=== PATIENT | male | born 1980 | race Caucasian/White ===

== ENCOUNTER 2016-12-11 19:30 | Emergency (ER) | payer OTHER ==
[~2016-12-11] VITALS: Ht 180.3 cm; Wt 100.0 kg
[~2016-12-11 19:30] MED LIST: ARIP30TA5 PO; BENZ1TAB70 PO; LURA40 PO
[2016-12-11 22:23] LABS: BASOPHILS # (AUTO) 0.06 K/uL (0.00-0.20); BASOPHILS % (AUTO) 0.6 % (0.0-2.0); EOSINOPHILS # (AUTO) 0.18 K/uL (0.00-0.70); EOSINOPHILS % (AUTO) 1.76 % (1.0-6.0); HEMATOCRIT 47.3 % (41-53); HEMOGLOBIN 16.1 g/dL (13.5-17.5); LYMPHOCYTES # (AUTO) 3.4 K/uL (1.0-4.8); LYMPHOCYTES % (AUTO) 33.2 % (22.0-44.0); MEAN CORPUSCULAR VOLUME 79 fL (80-100); MONOCYTES # (AUTO) 0.6 K/uL (0.1-1.0); MONOCYTES % (AUTO) 5.9 % (2.0-9.0); NEUTROPHILS % (AUTO) 58.6 % (40.0-70.0); PLATELET COUNT (AUTO) 237 K/uL (150-450); RED BLOOD CELL COUNT(AUTO) 5.96 MIL/uL (4.50-5.90); WHITE BLOOD COUNT (AUTO) 10.2 K/uL (4.5-11.0)
[2016-12-11 22:41] LABS: ANION GAP 13 mmol/L (8-16); CALCIUM, TOTAL 8.9 mg/dL (8.8-10.5); CARBON DIOXIDE 25 mmol/L (22-29); CHLORIDE 102 mmol/L (98-107); CREATININE 1.44 mg/dL (0.60-1.30); GLOMERULAR FILTR. RATE CALC 55 mL/min (>60); POTASSIUM 4.1 mmol/L (3.5-5.1); SODIUM SERUM 140 mmol/L (136-145); UREA NITROGEN, BLOOD 13 mg/dL (7-18)
[2016-12-11 22:46] LABS: ALANINE AMINOTRANSFERASE 24 U/L (12-78); ALBUMIN 4.1 g/dL (3.4-5.0); ASPARTATE AMINOTRANSFERASE 15 U/L (15-37); BILIRUBIN,TOTAL 0.4 mg/dL (0.1-1.0); TOTAL PROTEIN, SERUM 8.1 g/dL (6.4-8.2)
[2016-12-12 02:25] VITALS: BP 146/95
== END 2016-12-12 03:04 | disposition home or self-care (01) ==
LOC: EMS 19:31
DX: F25.9 Schizoaffective disorder, unspecified (principal); K21.9 Gastro-esophageal reflux disease without esophagitis; F17.210 Nicotine dependence, cigarettes, uncomplicated
CPT/HCPCS: 36415; 80053; 80307; 85025; 99284; G0480

== ENCOUNTER 2017-06-23 11:56 | Emergency (ER) | payer OTHER ==
[~2017-06-23] VITALS: Ht 180.3 cm; Wt 130.9 kg
[~2017-06-23 11:56] MED LIST changes: +ARIP30TA PO; -ARIP30TA5 PO
[2017-06-23 14:50] VITALS: BP 139/82
== END 2017-06-23 14:58 | disposition home or self-care (01) ==
LOC: EMS 11:58
DX: M25.561 Pain in right knee (principal); F20.9 Schizophrenia, unspecified; R03.0 Elevated blood-pressure reading, without diagnosis of hypertension; K21.9 Gastro-esophageal reflux disease without esophagitis; F17.210 Nicotine dependence, cigarettes, uncomplicated
CPT/HCPCS: 29505; 99283

== ENCOUNTER 2018-04-20 12:41 | Emergency (ER) | payer OTHER ==
[~2018-04-20] VITALS: Ht 180.3 cm; Wt 95.5 kg
[2018-04-20] MEDS ORDERED: BUSP5TAB20 PO (12:52)
[2018-04-20 14:32] LABS: APPEARANCE,URINE CLEAR (CLEAR); BILIRUBIN,URINE NEGATIVE (NEGATIVE); GLUCOSE, URINE (UA) NEGATIVE (NEGATIVE); KETONES,URINE NEGATIVE (NEGATIVE); LEUKOCYTE ESTERASE ,URINE NEGATIVE (NEGATIVE); NITRATE,URINE NEGATIVE (NEGATIVE); OCCULT BLOOD,URINE NEGATIVE (NEGATIVE); PROTEIN,URINE NEGATIVE (NEGATIVE)
[2018-04-20 14:39] LABS: RBC,URINE 0-2 /HPF (0-2)
[2018-04-20 14:41] LABS: BACTERIA,URINE None Seen /HPF (None Seen)
[2018-04-20 14:43] LABS: SQUAMOUS EPITHELIAL CELL,UR Rare /LPF (None Seen)
[2018-04-20 16:33] VITALS: BP 143/97
[2018-04-20] MEDS ORDERED: CIPROFLOXACIN HCL 250 MG TABLET PO ONE (17:00)
[2018-04-20] MEDS ORDERED: DOXYCYCLINE HYCLATE 100 MG CAPSULE PO ONE (17:30)
== END 2018-04-20 17:41 | disposition home or self-care (01) ==
LOC: EMS 12:42
DX: N45.3 Epididymo-orchitis (principal); N50.89 Other specified disorders of the male genital organs; K21.9 Gastro-esophageal reflux disease without esophagitis; F17.210 Nicotine dependence, cigarettes, uncomplicated
CPT/HCPCS: 76870; 87086; 99284; 99285; 99406

== ENCOUNTER 2018-08-13 12:50 | Inpatient (IN) | payer MEDICAID, OTHER ==
[~2018-08-13] VITALS: Ht 180.3 cm; Wt 127.5 kg
[~2018-08-13 12:50] MED LIST changes: +BUSP5TAB20 PO
[2018-08-13 14:55] LABS: BASOPHILS % (AUTO) 1.2 % (0.0-2.0); EOSINOPHILS % (AUTO) 2.9 % (1.0-6.0); HEMOGLOBIN 15.9 g/dL (13.5-17.5); LYMPHOCYTES # (AUTO) 2.5 K/uL (1.0-4.8); LYMPHOCYTES % (AUTO) 30.4 % (22.0-44.0); MEAN CORPUSCULAR HEMOGLOBIN 26.2 pg (26.0-34.0); MEAN CORPUSCULAR HGB CONC 33.8 G/dL (31.0-37.0); MEAN CORPUSCULAR VOLUME 78 fL (80-100); MONOCYTES # (AUTO) 0.6 K/uL (0.1-1.0); MONOCYTES % (AUTO) 7.4 % (2.0-9.0); NEUTROPHILS # (AUTO) 4.7 K/uL (1.8-7.7); NEUTROPHILS % (AUTO) 58.1 % (40.0-70.0); PLATELET COUNT (AUTO) 228 K/uL (150-450); RED BLOOD CELL COUNT(AUTO) 6.05 MIL/uL (4.50-5.90); RED CELL DISTRIBUTION WIDTH 15.1 % (11.5-14.5)
[2018-08-13 15:13] LABS: ANION GAP 11 mmol/L (8-16); CALCIUM, TOTAL 8.9 mg/dL (8.8-10.5); CARBON DIOXIDE 25 mmol/L (22-29); CHLORIDE 103 mmol/L (98-107); CREATININE 1.13 mg/dL (0.60-1.30); GLOMERULAR FILTR. RATE CALC > 60 mL/min (>60); GLUCOSE,RANDOM 105 mg/dL (70-110); POTASSIUM 3.9 mmol/L (3.5-5.1); SODIUM SERUM 139 mmol/L (136-145); UREA NITROGEN, BLOOD 9 mg/dL (7-18)
[2018-08-13 15:19] LABS: ALANINE AMINOTRANSFERASE 31 U/L (12-78); ALBUMIN 3.9 g/dL (3.4-5.0); ALKALINE PHOSPHATASE 99 U/L (46-116); ASPARTATE AMINOTRANSFERASE 12 U/L (15-37); BILIRUBIN,TOTAL 0.4 mg/dL (0.1-1.0); TOTAL PROTEIN, SERUM 7.7 g/dL (6.4-8.2)
[2018-08-13] MEDS ORDERED: HALOPERIDOL 5 MG TABLET PO PRN (16:30)
[2018-08-13] MEDS ORDERED: ZOLPIDEM TARTRATE 10 MG TABLET PO PRN (16:30)
[2018-08-13] MEDS ORDERED: ARIPiprazole LAUROXIL ER SUSPENSION 882 MG/3.2 ML SYRINGE IM ONE (16:30)
[2018-08-13] MEDS ORDERED: LORazepam 2 MG TABLET PO PRN (16:30)
[2018-08-13] MEDS: BusPIRone HCL 15 MG TABLET PO SCH (19:09)
[2018-08-13] MEDS: DiphenhydrAMINE HCL 25 MG CAPSULE PO SCH (20:18)
[2018-08-13] MEDS: ChlorproMAZINE HCL 100 MG TABLET PO SCH (20:19)
[2018-08-13 20:42] VITALS: BP 157/94
[2018-08-13] MEDS ORDERED: ALBUTEROL SULFATE HFA 90 MCG/PUFF 8 GM INHALER IH PRN (20:45)
[2018-08-13] MEDS ORDERED: ACETAMINOPHEN 325 MG TABLET PO PRN (20:45)
[2018-08-13] MEDS ORDERED: MAGNESIUM HYDROXIDE SUSPENSION 30 ML UDCUP PO PRN (20:45)
[2018-08-13] MEDS ORDERED: GuaiFENesin/D-METHORPHAN [SUGAR-FREE] 200-20MG/10 ML SYRUP UDCUP PO PRN (20:45)
[2018-08-13] MEDS ORDERED: CloNIDine HCL 0.1 MG TABLET PO PRN (20:45)
[2018-08-13] MEDS ORDERED: DOCUSATE SODIUM 100 MG CAPSULE PO PRN (20:45)
[2018-08-13] MEDS ORDERED: IBUPROFEN 400 MG TABLET PO PRN (20:45)
[2018-08-13] MEDS ORDERED: MAG HYDROX/AL HYDROX/SIMETH ES 30 ML SUSPENSION UDCUP PO PRN (20:45)
[2018-08-13] MEDS ORDERED: ONDANSETRON HCL 4 MG TABLET PO PRN (20:45)
[2018-08-13] MEDS ORDERED: LOPERAMIDE HCL 2 MG CAPSULE PO PRN (20:45)
[2018-08-13] MEDS ORDERED: PETROLATUM,WHITE 71 GM JELLY TP PRN (20:45)
[2018-08-14 06:43] LABS: BASOPHILS % (AUTO) 1.5 % (0.0-2.0); EOSINOPHILS % (AUTO) 5.3 % (1.0-6.0); HEMATOCRIT 46.3 % (41-53); HEMOGLOBIN 15.7 g/dL (13.5-17.5); LYMPHOCYTES # (AUTO) 2.4 K/uL (1.0-4.8); LYMPHOCYTES % (AUTO) 36.4 % (22.0-44.0); MEAN CORPUSCULAR HEMOGLOBIN 26.2 pg (26.0-34.0); MEAN CORPUSCULAR VOLUME 77 fL (80-100); MONOCYTES # (AUTO) 0.5 K/uL (0.1-1.0); MONOCYTES % (AUTO) 7.9 % (2.0-9.0); NEUTROPHILS # (AUTO) 3.2 K/uL (1.8-7.7); NEUTROPHILS % (AUTO) 48.9 % (40.0-70.0); PLATELET COUNT (AUTO) 213 K/uL (150-450); RED BLOOD CELL COUNT(AUTO) 6.01 MIL/uL (4.50-5.90); RED CELL DISTRIBUTION WIDTH 15.1 % (11.5-14.5)
[2018-08-14 07:13] LABS: ALANINE AMINOTRANSFERASE 26 U/L (12-78); ALKALINE PHOSPHATASE 100 U/L (46-116); ANION GAP 7 mmol/L (8-16); ASPARTATE AMINOTRANSFERASE 14 U/L (15-37); BILIRUBIN,TOTAL 0.8 mg/dL (0.1-1.0); CALCIUM, TOTAL 8.4 mg/dL (8.8-10.5); CARBON DIOXIDE 29 mmol/L (22-29); CHLORIDE 105 mmol/L (98-107); CHOL/HDL RATIO 6.1 (4.2-7.3); CHOLESTEROL 172 mg/dL (131-200); CREATININE 1.28 mg/dL (0.60-1.30); GLOMERULAR FILTR. RATE CALC > 60 mL/min (>60); GLUCOSE,RANDOM 97 mg/dL (70-110); HDL CHOLESTEROL 28 mg/dL (40-60); LDL CHOL (CALC.) 111 mg/dL (0-130); POTASSIUM 4.2 mmol/L (3.5-5.1); SODIUM SERUM 141 mmol/L (136-145); TOTAL PROTEIN, SERUM 7.1 g/dL (6.4-8.2); TRIGLYCERIDES 164 mg/dL (15-150); UREA NITROGEN, BLOOD 10 mg/dL (7-18)
[2018-08-14 08:24] LABS: HEMOGLOBIN A1C 5.7 % (4.5-6.2)
[2018-08-14 08:25] VITALS: BP 159/96
[2018-08-14] MEDS: NICOTINE 14 MG/24 HOUR PATCH TD SCH (08:27)
[2018-08-14] MEDS: BusPIRone HCL 15 MG TABLET PO SCH ×3 (08:27→16:31)
[2018-08-14 15:02] LABS: APPEARANCE,URINE CLEAR (CLEAR); BILIRUBIN,URINE NEGATIVE (NEGATIVE); GLUCOSE, URINE (UA) NEGATIVE (NEGATIVE); KETONES,URINE NEGATIVE (NEGATIVE); LEUKOCYTE ESTERASE ,URINE NEGATIVE (NEGATIVE); NITRATE,URINE NEGATIVE (NEGATIVE); OCCULT BLOOD,URINE NEGATIVE (NEGATIVE); PROTEIN,URINE NEGATIVE (NEGATIVE)
[2018-08-14] MEDS: DiphenhydrAMINE HCL 25 MG CAPSULE PO SCH (20:09)
[2018-08-14] MEDS: ChlorproMAZINE HCL 100 MG TABLET PO SCH (20:09)
[2018-08-14 20:52] VITALS: BP 115/70
[2018-08-14 21:53] VITALS: BP 136/81
[2018-08-14] MEDS: AmLODIPine BESYLATE 5 MG TABLET PO SCH (21:53)
[2018-08-15] MEDS: AmLODIPine BESYLATE 5 MG TABLET PO SCH (08:05)
[2018-08-15] MEDS: BusPIRone HCL 15 MG TABLET PO SCH ×3 (08:06→16:48)
[2018-08-15] MEDS: NICOTINE 14 MG/24 HOUR PATCH TD SCH (08:10)
[2018-08-15 08:21] VITALS: BP 143/78
[2018-08-15 16:45] VITALS: BP 158/95
[2018-08-15] MEDS: DiphenhydrAMINE HCL 25 MG CAPSULE PO SCH (21:38)
[2018-08-15] MEDS: ChlorproMAZINE HCL 100 MG TABLET PO SCH (21:38)
[2018-08-16] MEDS: AmLODIPine BESYLATE 5 MG TABLET PO SCH (08:15)
[2018-08-16] MEDS: BusPIRone HCL 15 MG TABLET PO SCH ×3 (08:15→16:15)
[2018-08-16] MEDS: NICOTINE 14 MG/24 HOUR PATCH TD SCH (08:16)
[2018-08-16 08:52] VITALS: BP 111/79
[2018-08-16 19:01] VITALS: BP 134/74
[2018-08-16] MEDS: DiphenhydrAMINE HCL 25 MG CAPSULE PO SCH (20:19)
[2018-08-16] MEDS: ChlorproMAZINE HCL 100 MG TABLET PO SCH (20:19)
[2018-08-17] MEDS: AmLODIPine BESYLATE 5 MG TABLET PO SCH (08:56)
[2018-08-17] MEDS: BusPIRone HCL 15 MG TABLET PO SCH ×2 (08:57→13:04)
[2018-08-17] MEDS: NICOTINE 14 MG/24 HOUR PATCH TD SCH (08:57)
[2018-08-17 12:33] VITALS: BP 137/73
[2018-08-17] MEDS ORDERED: BUSP15 PO (13:22)
[2018-08-17] MEDS ORDERED: CHLO100T24 PO (13:23)
[2018-08-17] MEDS ORDERED: DIPH50 PO (13:23)
[2018-08-17] MEDS ORDERED: AMLO-511 PO (13:25)
== END 2018-08-17 15:45 | disposition home or self-care (01) | DRG 750 ==
LOC: EMS 12:51 → 3EI 16:38
PROVIDERS: ADMIT Psychiatry & Neurology Psychiatry; ATTEND Psychiatry & Neurology Psychiatry
DX: F25.0 Schizoaffective disorder, bipolar type (principal); R45.851 Suicidal ideations; E78.5 Hyperlipidemia, unspecified; F17.200 Nicotine dependence, unspecified, uncomplicated; F19.90 Other psychoactive substance use, unspecified, uncomplicated; F41.9 Anxiety disorder, unspecified; K21.9 Gastro-esophageal reflux disease without esophagitis; I10 Essential (primary) hypertension; K62.89 Other specified diseases of anus and rectum; Z91.5 Personal history of self-harm; Z71.6 Tobacco abuse counseling; Z79.899 Other long term (current) drug therapy
CPT/HCPCS: 83036; 84443; 96372; G0480

== ENCOUNTER 2018-09-23 16:10 | Emergency (ER) | payer MEDICAID ==
[~2018-09-23] VITALS: Ht 180.3 cm; Wt 100.0 kg
[~2018-09-23 16:10] MED LIST changes: +AMLO-511 PO; -ARIP30TA PO; -BENZ1TAB70 PO; +BUSP15 PO; -BUSP5TAB20 PO; +CHLO100T24 PO; +DIPH50 PO; -LURA40 PO
[2018-09-23 16:53] VITALS: BP 150/99
[2018-09-23 19:48] LABS: BASOPHILS % (AUTO) 1.1 % (0.0-2.0); EOSINOPHILS % (AUTO) 2.8 % (1.0-6.0); HEMATOCRIT 44.2 % (41-53); HEMOGLOBIN 15.1 g/dL (13.5-17.5); LYMPHOCYTES % (AUTO) 33.2 % (22.0-44.0); MEAN CORPUSCULAR HEMOGLOBIN 25.9 pg (26.0-34.0); MEAN CORPUSCULAR HGB CONC 34.2 G/dL (31.0-37.0); MEAN CORPUSCULAR VOLUME 76 fL (80-100); MONOCYTES # (AUTO) 0.7 K/uL (0.1-1.0); MONOCYTES % (AUTO) 7.3 % (2.0-9.0); NEUTROPHILS % (AUTO) 55.6 % (40.0-70.0); PLATELET COUNT (AUTO) 225 K/uL (150-450); RED BLOOD CELL COUNT(AUTO) 5.85 MIL/uL (4.50-5.90); RED CELL DISTRIBUTION WIDTH 16.3 % (11.5-14.5)
[2018-09-23 19:58] LABS: ANION GAP 7 mmol/L (8-16); CALCIUM, TOTAL 8.8 mg/dL (8.8-10.5); CARBON DIOXIDE 29 mmol/L (22-29); CHLORIDE 105 mmol/L (98-107); CREATININE 1.23 mg/dL (0.60-1.30); GLOMERULAR FILTR. RATE CALC > 60 mL/min (>60); GLUCOSE,RANDOM 90 mg/dL (70-110); POTASSIUM 3.7 mmol/L (3.5-5.1); SODIUM SERUM 141 mmol/L (136-145); UREA NITROGEN, BLOOD 5 mg/dL (7-18)
[2018-09-23 20:05] LABS: ALANINE AMINOTRANSFERASE 26 U/L (12-78); ALBUMIN 4.2 g/dL (3.4-5.0); ALKALINE PHOSPHATASE 97 U/L (46-116); ASPARTATE AMINOTRANSFERASE 15 U/L (15-37); BILIRUBIN,TOTAL 0.4 mg/dL (0.1-1.0); TOTAL PROTEIN, SERUM 7.7 g/dL (6.4-8.2)
== END 2018-09-23 20:52 | disposition left against medical advice (07) ==
LOC: EMS 16:11
DX: M25.561 Pain in right knee (principal); R44.0 Auditory hallucinations; R11.2 Nausea with vomiting, unspecified; K21.9 Gastro-esophageal reflux disease without esophagitis; F32.9 Major depressive disorder, single episode, unspecified; F20.9 Schizophrenia, unspecified; F17.210 Nicotine dependence, cigarettes, uncomplicated; Z53.21 Procedure and treatment not carried out due to patient leaving prior to being seen by health care provider
CPT/HCPCS: 36415; 80053; 85025; G0480

== ENCOUNTER 2021-01-31 13:04 | Emergency (ER) | payer OTHER ==
[~2021-01-31] VITALS: Ht 188 cm; Wt 172.7 kg
[~2021-01-31 13:04] MED LIST changes: +AMLO-257 PO; -AMLO-511 PO; -CHLO100T24 PO; +CHLO100T31 PO
[2021-01-31] MEDS ORDERED: IBUPROFEN 600 MG TABLET PO ONE (14:45)
[2021-01-31 15:30] LABS: BASOPHILS % (AUTO) 0.6 % (0.0-2.0); EOSINOPHILS % (AUTO) 0.3 % (1.0-6.0); HEMOGLOBIN 15.1 g/dL (13.5-17.5); LYMPHOCYTES # (AUTO) 1.6 K/uL (1.0-4.8); LYMPHOCYTES % (AUTO) 21.3 % (22.0-44.0); MEAN CORPUSCULAR HEMOGLOBIN 26.5 pg (26.0-34.0); MEAN CORPUSCULAR HGB CONC 33.5 G/dL (31.0-37.0); MEAN CORPUSCULAR VOLUME 79 fL (80-100); MONOCYTES # (AUTO) 0.7 K/uL (0.1-1.0); MONOCYTES % (AUTO) 8.9 % (2.0-9.0); NEUTROPHILS # (AUTO) 5.2 K/uL (1.8-7.7); NEUTROPHILS % (AUTO) 68.9 % (40.0-70.0); PLATELET COUNT (AUTO) 210 K/uL (150-450); RED BLOOD CELL COUNT(AUTO) 5.69 MIL/uL (4.50-5.90); RED CELL DISTRIBUTION WIDTH 14.4 % (11.5-14.5)
[2021-01-31 15:50] LABS: ANION GAP 9 mmol/L (8-16); CALCIUM, TOTAL 8.9 mg/dL (8.8-10.5); CARBON DIOXIDE 28 mmol/L (22-29); CHLORIDE 100 mmol/L (98-107); CREATININE 1.18 mg/dL (0.60-1.30); GLOMERULAR FILTR. RATE CALC > 60 mL/min (>60); GLUCOSE,RANDOM 117 mg/dL (70-110); SODIUM SERUM 137 mmol/L (136-145); UREA NITROGEN, BLOOD 11 mg/dL (7-18)
[2021-01-31 15:51] LABS: POTASSIUM 2.8 mmol/L (3.5-5.1)
[2021-01-31 16:00] VITALS: BP 127/84
[2021-01-31] MEDS ORDERED: POTASSIUM CHLORIDE 20 MEQ ER TABLET PO ONE (16:00)
== END 2021-01-31 16:20 | disposition home or self-care (01) ==
LOC: EMS 13:08
DX: E87.6 Hypokalemia (principal); R42 Dizziness and giddiness; R51.9 Headache, unspecified; K21.9 Gastro-esophageal reflux disease without esophagitis; F20.9 Schizophrenia, unspecified; F32.9 Major depressive disorder, single episode, unspecified; F17.210 Nicotine dependence, cigarettes, uncomplicated
CPT/HCPCS: 80048; 85025; 93005; 99284

== ENCOUNTER 2021-05-21 14:45 | Emergency (ER) | payer OTHER ==
[~2021-05-21] VITALS: Ht 177.8 cm; Wt 113.6 kg
[2021-05-21 20:26] LABS: COVID AG,FIA SOURCE NASOPHARYNGEAL
[2021-05-21 20:38] LABS: BASOPHILS % (AUTO) 0.8 % (0.0-2.0); HEMATOCRIT 43.3 % (41-53); HEMOGLOBIN 14.7 g/dL (13.5-17.5); LYMPHOCYTES # (AUTO) 2.3 K/uL (1.0-4.8); LYMPHOCYTES % (AUTO) 29.9 % (22.0-44.0); MEAN CORPUSCULAR HEMOGLOBIN 27.6 pg (26.0-34.0); MEAN CORPUSCULAR HGB CONC 34.1 G/dL (31.0-37.0); MEAN CORPUSCULAR VOLUME 81 fL (80-100); MONOCYTES # (AUTO) 0.7 K/uL (0.1-1.0); MONOCYTES % (AUTO) 8.6 % (2.0-9.0); NEUTROPHILS # (AUTO) 4.6 K/uL (1.8-7.7); NEUTROPHILS % (AUTO) 59.7 % (40.0-70.0); PLATELET COUNT (AUTO) 193 K/uL (150-450); RED BLOOD CELL COUNT(AUTO) 5.34 MIL/uL (4.50-5.90); RED CELL DISTRIBUTION WIDTH 14.3 % (11.5-14.5)
[2021-05-21 20:52] LABS: INR 1.1 (0.9-1.1); PROTHROMBIN TIME 11.2 SEC (9.4-11.6)
[2021-05-21 21:02] LABS: ANION GAP 13 mmol/L (8-16); CALCIUM, TOTAL 8.9 mg/dL (8.8-10.5); CARBON DIOXIDE 27 mmol/L (22-29); CHLORIDE 102 mmol/L (98-107); CREATININE 1.32 mg/dL (0.60-1.30); GLOMERULAR FILTR. RATE CALC 59 mL/min (>60); GLUCOSE,RANDOM 97 mg/dL (70-110); POTASSIUM 3.2 mmol/L (3.5-5.1); SODIUM SERUM 142 mmol/L (136-145); UREA NITROGEN, BLOOD 14 mg/dL (7-18)
[2021-05-21 21:15] LABS: ALANINE AMINOTRANSFERASE 32 U/L (12-78); ALBUMIN 4.4 g/dL (3.4-5.0); ALKALINE PHOSPHATASE 92 U/L (46-116); ASPARTATE AMINOTRANSFERASE 14 U/L (15-37); BILIRUBIN,TOTAL 0.7 mg/dL (0.1-1.0); CREATINE KINASE, TOTAL ONLY 139 U/L (39-308); LIPASE 93 U/L (73-393); TOTAL PROTEIN, SERUM 7.9 g/dL (6.4-8.2)
[2021-05-21] MEDS ORDERED: SODIUM CHLORIDE 0.9% 1,000 ML IV ONE (21:30)
[2021-05-21] MEDS ORDERED: POTASSIUM CHLORIDE 20 MEQ ER TABLET PO ONE (21:30)
[2021-05-21 21:38] LABS: D-DIMER 0.19 mg/L FEU (0.00-0.50)
[2021-05-21] MEDS ORDERED: IOHEXOL 350 MG/ML 100 ML VIAL ONE (21:38)
[2021-05-21] MEDS ORDERED: SODIUM CHLORIDE 0.9% 100 ML ONE (21:38)
[2021-05-21 22:01] LABS: B-TYPE NATRIURETIC PEPTIDE < 5 pg/mL (0-100)
[2021-05-22 00:36] VITALS: BP 123/71
== END 2021-05-22 00:57 | disposition home or self-care (01) ==
LOC: EMS 14:50
DX: I31.3 Pericardial effusion (noninflammatory) (principal); R10.11 Right upper quadrant pain; F32.9 Major depressive disorder, single episode, unspecified; K21.9 Gastro-esophageal reflux disease without esophagitis; F20.9 Schizophrenia, unspecified; F17.210 Nicotine dependence, cigarettes, uncomplicated; Z20.822 Contact with and (suspected) exposure to COVID-19
CPT/HCPCS: 36415; 71045; 71275; 80053; 82550; 83605; 83690; 83880; 84484; 85025; 85379; 85610; 85730; 87040; 87426; 93005; 96360; 96361; 99285; A9575; J7030; U0003; J7050; Q9967

== ENCOUNTER 2021-10-01 12:29 | Emergency (ER) | payer OTHER ==
[~2021-10-01] VITALS: Ht 180.3 cm; Wt 127.3 kg
[2021-10-01 13:12] LABS: BASOPHILS % (AUTO) 0.7 % (0.0-2.0); EOSINOPHILS % (AUTO) 0.8 % (1.0-6.0); HEMATOCRIT 44.9 % (41-53); HEMOGLOBIN 15.7 g/dL (13.5-17.5); LYMPHOCYTES # (AUTO) 1.7 K/uL (1.0-4.8); LYMPHOCYTES % (AUTO) 24.8 % (22.0-44.0); MEAN CORPUSCULAR HEMOGLOBIN 27.7 pg (26.0-34.0); MEAN CORPUSCULAR VOLUME 79 fL (80-100); MONOCYTES # (AUTO) 0.6 K/uL (0.1-1.0); MONOCYTES % (AUTO) 8.1 % (2.0-9.0); NEUTROPHILS # (AUTO) 4.5 K/uL (1.8-7.7); NEUTROPHILS % (AUTO) 65.6 % (40.0-70.0); PLATELET COUNT (AUTO) 186 K/uL (150-450); RED BLOOD CELL COUNT(AUTO) 5.66 MIL/uL (4.50-5.90); RED CELL DISTRIBUTION WIDTH 13.2 % (11.5-14.5)
[2021-10-01 13:44] LABS: CALCIUM, TOTAL 9.2 mg/dL (8.8-10.5); CREATININE 1.34 mg/dL (0.60-1.30); POTASSIUM 3.7 mmol/L (3.5-5.1)
[2021-10-01] MEDS ORDERED: FentaNYL CITRATE PF 100 MCG/2 ML VIAL IVP ONE (13:45)
[2021-10-01] MEDS ORDERED: RINGERS SOLUTION,LACTATED 1,000 ML IV ONE (13:45)
[2021-10-01 13:54] LABS: COVID AG,FIA SOURCE NASAL SWAB
[2021-10-01] MEDS ORDERED: MAG HYDROX/AL HYDROX/SIMETH ES 30 ML SUSPENSION UDCUP PO ONE (16:45)
[2021-10-01] MEDS ORDERED: IOHEXOL 350 MG/ML 150 ML VIAL ONE (17:03)
[2021-10-01] MEDS ORDERED: SODIUM CHLORIDE 0.9% 100 ML ONE (17:03)
[2021-10-01 18:55] VITALS: BP 145/86
== END 2021-10-01 19:09 | disposition home or self-care (01) ==
LOC: EMS 12:29
DX: R07.9 Chest pain, unspecified (principal); R00.0 Tachycardia, unspecified; F17.210 Nicotine dependence, cigarettes, uncomplicated; F32.9 Major depressive disorder, single episode, unspecified; F20.9 Schizophrenia, unspecified; Z20.822 Contact with and (suspected) exposure to COVID-19
CPT/HCPCS: 36415; 71046; 71275; 80048; 84484; 85025; 87426; 93005; 96361; 96374; 99285; J3010; J7050; J7120; Q9967

== ENCOUNTER 2022-02-22 14:58 | Emergency (ER) | payer OTHER ==
[~2022-02-22] VITALS: Ht 188 cm; Wt 127.3 kg
[~2022-02-22 14:58] MED LIST changes: -CHLO100T31 PO; +CHLO100T42 PO
[2022-02-22] MEDS ORDERED: AMLO-257 PO (15:10)
[2022-02-22] MEDS ORDERED: ATEN-73 PO (15:10)
[2022-02-22] MEDS ORDERED: ATOR20TA86 PO (15:10)
[2022-02-22] MEDS ORDERED: BUPR-50 PO (15:10)
[2022-02-22] MEDS ORDERED: OMEG100015 PO (15:10)
[2022-02-22] MEDS ORDERED: DEUT12TA PO (15:10)
[2022-02-22] MEDS ORDERED: FOLI0.4T6 PO (15:10)
[2022-02-22] MEDS ORDERED: LISI-894 PO (15:10)
[2022-02-22] MEDS ORDERED: OMEP20 PO (15:10)
[2022-02-22 15:29] LABS: COVID AG,FIA SOURCE NASOPHARYNGEAL
[2022-02-22 15:48] VITALS: BP 146/72
[2022-02-22 15:54] LABS: BASOPHILS % (AUTO) 0.7 % (0.0-2.0); EOSINOPHILS % (AUTO) 1.8 % (1.0-6.0); HEMATOCRIT 41.8 % (41-53); LYMPHOCYTES # (AUTO) 2.4 K/uL (1.0-4.8); LYMPHOCYTES % (AUTO) 30.1 % (22.0-44.0); MEAN CORPUSCULAR HGB CONC 33.5 G/dL (31.0-37.0); MEAN CORPUSCULAR VOLUME 81 fL (80-100); MONOCYTES # (AUTO) 0.8 K/uL (0.1-1.0); MONOCYTES % (AUTO) 10.2 % (2.0-9.0); NEUTROPHILS # (AUTO) 4.5 K/uL (1.8-7.7); NEUTROPHILS % (AUTO) 57.2 % (40.0-70.0); PLATELET COUNT (AUTO) 235 K/uL (150-450); RED BLOOD CELL COUNT(AUTO) 5.19 MIL/uL (4.50-5.90)
[2022-02-22] MEDS ORDERED: OLANZapine 5 MG TABLET PO ONE (16:00)
[2022-02-22] MEDS ORDERED: OXCA150T27 PO (16:03)
[2022-02-22] MEDS ORDERED: ARIP882S2 IM (16:03)
[2022-02-22 16:11] LABS: ANION GAP 10 mmol/L (8-16); CALCIUM, TOTAL 8.6 mg/dL (8.8-10.5); CARBON DIOXIDE 25 mmol/L (22-29); CHLORIDE 104 mmol/L (98-107); CREATININE 1.14 mg/dL (0.60-1.30); GLOMERULAR FILTR. RATE CALC > 60 mL/min (>60); GLUCOSE,RANDOM 106 mg/dL (70-110); POTASSIUM 3.8 mmol/L (3.5-5.1); SODIUM SERUM 139 mmol/L (136-145); UREA NITROGEN, BLOOD 7 mg/dL (7-18)
[2022-02-22 16:17] LABS: ALANINE AMINOTRANSFERASE 36 U/L (12-78); ALBUMIN 3.7 g/dL (3.4-5.0); ALKALINE PHOSPHATASE 80 U/L (46-116); ASPARTATE AMINOTRANSFERASE 19 U/L (15-37); BILIRUBIN,TOTAL 0.5 mg/dL (0.1-1.0); TOTAL PROTEIN, SERUM 7.2 g/dL (6.4-8.2)
== END 2022-02-22 16:37 | disposition home or self-care (01) ==
LOC: EMS 14:58
DX: F25.9 Schizoaffective disorder, unspecified (principal); F17.210 Nicotine dependence, cigarettes, uncomplicated; F32.9 Major depressive disorder, single episode, unspecified; K21.9 Gastro-esophageal reflux disease without esophagitis; Z20.822 Contact with and (suspected) exposure to COVID-19
CPT/HCPCS: 36415; 80053; 85025; 87426; 99284; G0480

== ENCOUNTER 2022-03-31 13:16 | Emergency (ER) | payer OTHER ==
[~2022-03-31] VITALS: Ht 188 cm; Wt 127.3 kg
[~2022-03-31 13:16] MED LIST changes: +ARIP882S2 IM; +ATEN-73 PO; +ATOR20TA86 PO; +BUPR-50 PO; +DEUT12TA PO; +FOLI0.4T6 PO; +LISI-894 PO; +OMEG100015 PO; +OMEP20 PO; +OXCA150T27 PO
[2022-03-31 13:28] VITALS: BP 151/94
[2022-03-31 18:33] LABS: BASOPHILS % (AUTO) 0.6 % (0.0-2.0); EOSINOPHILS % (AUTO) 0.3 % (1.0-6.0); HEMATOCRIT 41.2 % (41-53); HEMOGLOBIN 13.7 g/dL (13.5-17.5); LYMPHOCYTES % (AUTO) 28.6 % (22.0-44.0); MEAN CORPUSCULAR HEMOGLOBIN 26.4 pg (26.0-34.0); MEAN CORPUSCULAR HGB CONC 33.4 G/dL (31.0-37.0); MEAN CORPUSCULAR VOLUME 79 fL (80-100); MONOCYTES # (AUTO) 0.6 K/uL (0.1-1.0); MONOCYTES % (AUTO) 8.1 % (2.0-9.0); NEUTROPHILS # (AUTO) 4.4 K/uL (1.8-7.7); NEUTROPHILS % (AUTO) 62.4 % (40.0-70.0); PLATELET COUNT (AUTO) 210 K/uL (150-450); RED BLOOD CELL COUNT(AUTO) 5.21 MIL/uL (4.50-5.90); RED CELL DISTRIBUTION WIDTH 14.5 % (11.5-14.5)
[2022-03-31 18:43] LABS: ANION GAP 8 mmol/L (8-16); CALCIUM, TOTAL 8.8 mg/dL (8.8-10.5); CARBON DIOXIDE 26 mmol/L (22-29); CHLORIDE 106 mmol/L (98-107); CREATININE 1.13 mg/dL (0.60-1.30); GLUCOSE,RANDOM 108 mg/dL (70-110); POTASSIUM 3.7 mmol/L (3.5-5.1); SODIUM SERUM 140 mmol/L (136-145); UREA NITROGEN, BLOOD 8 mg/dL (7-18)
[2022-03-31 18:46] LABS: GLOMERULAR FILTR. RATE CALC > 60 mL/min (>60)
[2022-03-31 18:49] LABS: ALANINE AMINOTRANSFERASE 35 U/L (12-78); ALKALINE PHOSPHATASE 96 U/L (46-116); ASPARTATE AMINOTRANSFERASE 14 U/L (15-37); BILIRUBIN,TOTAL 0.4 mg/dL (0.1-1.0); TOTAL PROTEIN, SERUM 7.2 g/dL (6.4-8.2)
[2022-03-31] MEDS ORDERED: CHLO100T42 PO (18:59)
[2022-03-31] MEDS ORDERED: OXCA300T57 PO (18:59)
[2022-03-31] MEDS ORDERED: HYDR25TA2 PO (19:07)
== END 2022-03-31 19:18 | disposition home or self-care (01) ==
LOC: EMS 13:16
DX: R60.0 Localized edema (principal); F25.9 Schizoaffective disorder, unspecified; F32.A Depression, unspecified; F17.210 Nicotine dependence, cigarettes, uncomplicated; Z87.19 Personal history of other diseases of the digestive system
CPT/HCPCS: 99283; 80053; 85025; 36415; G0480

== ENCOUNTER 2022-04-29 18:19 | Inpatient (IN) | payer OTHER ==
[~2022-04-29] VITALS: Ht 188 cm; Wt 148.3 kg
[~2022-04-29 18:19] MED LIST changes: -ARIP882S2 IM; -DIPH50 PO; +HYDR25TA2 PO; +OXCA300T57 PO
[2022-04-29] MEDS ORDERED: VANCOMYCIN HCL 1.5 GM in DEXTROSE 5%-WATER 250 ML IV ONE (20:00)
[2022-04-29 20:15] LABS: BASOPHILS % (AUTO) 0.3 % (0.0-2.0); EOSINOPHILS % (AUTO) 0.2 % (1.0-6.0); HEMATOCRIT 33.8 % (41-53); HEMOGLOBIN 11.7 g/dL (13.5-17.5); LYMPHOCYTES # (AUTO) 1.1 K/uL (1.0-4.8); LYMPHOCYTES % (AUTO) 14.6 % (22.0-44.0); MEAN CORPUSCULAR HEMOGLOBIN 26.8 pg (26.0-34.0); MEAN CORPUSCULAR HGB CONC 34.5 G/dL (31.0-37.0); MEAN CORPUSCULAR VOLUME 78 fL (80-100); MONOCYTES # (AUTO) 0.9 K/uL (0.1-1.0); MONOCYTES % (AUTO) 12.3 % (2.0-9.0); NEUTROPHILS # (AUTO) 5.3 K/uL (1.8-7.7); NEUTROPHILS % (AUTO) 72.6 % (40.0-70.0); PLATELET COUNT (AUTO) 166 K/uL (150-450); RED BLOOD CELL COUNT(AUTO) 4.36 MIL/uL (4.50-5.90); RED CELL DISTRIBUTION WIDTH 15.5 % (11.5-14.5)
[2022-04-29 20:17] LABS: COVID AG,FIA SOURCE NASOPHARYNGEAL
[2022-04-29 20:24] LABS: CALCIUM, TOTAL 8.9 mg/dL (8.8-10.5); CREATININE 1.41 mg/dL (0.60-1.30); POTASSIUM 3.4 mmol/L (3.5-5.1)
[2022-04-29 20:30] LABS: ALBUMIN 3.3 g/dL (3.4-5.0); BILIRUBIN,TOTAL 0.5 mg/dL (0.1-1.0); TOTAL PROTEIN, SERUM 7.2 g/dL (6.4-8.2)
[2022-04-29 20:34] LABS: LACTIC ACID 0.6 mmol/L (0.4-2.0)
[2022-04-29] MEDS ORDERED: ONDANSETRON HCL 4 MG/2 ML VIAL IVP PRN (21:00)
[2022-04-29] MEDS ORDERED: PERTUSS(ACELL),DIPH,TET VAC/PF 0.5 ML SYRINGE IM. ONE (21:00)
[2022-04-29] MEDS ORDERED: MORPHINE SULFATE 2 MG/ML SYRINGE IVP PRN (21:00)
[2022-04-29] MEDS: ACETAMINOPHEN 325 MG TABLET PO PRN (21:22)
[2022-04-29] MEDS: CefTRIAXone 1 GM/DEXTROSE 50 ML IV SCH (22:26)
[2022-04-29] MEDS ORDERED: RINGERS SOLUTION,LACTATED 1,000 ML IV ONE (22:45)
[2022-04-29 23:04] VITALS: BP 131/75
[2022-04-29] MEDS: HEPARIN SODIUM,PORCINE 5,000 UNITS/ML VIAL SQ SCH (23:05)
[2022-04-30] MEDS ORDERED: VANCOMYCIN 1GM/WATER(PEG/NADA) 200 ML IV ONE
[2022-04-30 04:04] VITALS: BP 131/74
[2022-04-30] MEDS ORDERED: FURO-151 PO (06:18)
[2022-04-30] MEDS: RINGERS SOLUTION,LACTATED 1,000 ML IV SCH ×3 (06:19→15:22)
[2022-04-30] MEDS ORDERED: HYDROCHLOROTHIAZIDE 25 MG TABLET PO PRN (07:00)
[2022-04-30 07:40] VITALS: BP 126/71
[2022-04-30 07:40] LABS: ANION GAP 12 mmol/L (8-16); CALCIUM, TOTAL 8.6 mg/dL (8.8-10.5); CARBON DIOXIDE 23 mmol/L (22-29); CHLORIDE 102 mmol/L (98-107); CREATININE 1.11 mg/dL (0.60-1.30); GLUCOSE,RANDOM 96 mg/dL (70-110); POTASSIUM 3.6 mmol/L (3.5-5.1); SODIUM SERUM 137 mmol/L (136-145); UREA NITROGEN, BLOOD 17 mg/dL (7-18)
[2022-04-30 07:44] LABS: GLOMERULAR FILTR. RATE CALC > 60 mL/min (>60)
[2022-04-30] MEDS: VANCOMYCIN HCL 1.5 GM in DEXTROSE 5%-WATER 250 ML IV SCH ×2 (07:55→20:42)
[2022-04-30] MEDS: OXcarbazepine 300 MG TABLET PO SCH ×2 (07:55→20:50)
[2022-04-30] MEDS: LISINOPRIL 20 MG TABLET PO SCH (07:55)
[2022-04-30] MEDS: ATENOLOL 25 MG TABLET PO SCH (07:55)
[2022-04-30] MEDS: HEPARIN SODIUM,PORCINE 5,000 UNITS/ML VIAL SQ SCH ×3 (07:55→23:31)
[2022-04-30] MEDS: OMEPRAZOLE 20 MG CAPSULE PO SCH (07:55)
[2022-04-30] MEDS: AmLODIPine BESYLATE 5 MG TABLET PO SCH (07:55)
[2022-04-30] MEDS: BusPIRone HCL 10 MG TABLET PO SCH ×3 (07:55→20:50)
[2022-04-30] MEDS ORDERED: FUROSEMIDE 40 MG TABLET PO SCH ×2 (09:00)
[2022-04-30] MEDS ORDERED: ARIP882S2 IM (10:54)
[2022-04-30] MEDS ORDERED: ACET-2521 PO (10:54)
[2022-04-30] MEDS ORDERED: BUSP10TA23 PO (10:54)
[2022-04-30] MEDS: BuPROPion HCL XL 150 MG ER TABLET PO SCH (11:59)
[2022-04-30] MEDS: FOLIC ACID 0.4 MG TABLET PO SCH (11:59)
[2022-04-30] MEDS: OMEGA-3/DHA/EPA/FISH OIL 1,000 MG CAPSULE PO SCH ×2 (12:00→21:38)
[2022-04-30 12:02] LABS: APPEARANCE,URINE CLEAR (CLEAR); BILIRUBIN,URINE NEGATIVE (NEGATIVE); CREATININE,URINE RANDOM 83.9 mg/dL (30.0-125.0); GLUCOSE, URINE (UA) NEGATIVE (NEGATIVE); KETONES,URINE NEGATIVE (NEGATIVE); LEUKOCYTE ESTERASE ,URINE NEGATIVE (NEGATIVE); NITRATE,URINE NEGATIVE (NEGATIVE); OCCULT BLOOD,URINE NEGATIVE (NEGATIVE); PH,URINE 6.5 (5.0-8.0); PROTEIN,URINE NEGATIVE (NEGATIVE); SPECIFIC GRAVITIY, URINE 1.012 (1.003-1.030)
[2022-04-30 12:11] LABS: RBC,URINE 0-2 /HPF (0-2)
[2022-04-30 12:12] LABS: SQUAMOUS EPITHELIAL CELL,UR Few /LPF (None Seen)
[2022-04-30] MEDS: ACETAMINOPHEN 325 MG TABLET PO PRN ×2 (15:45→20:47)
[2022-04-30 19:47] VITALS: BP 121/66
[2022-04-30] MEDS ORDERED: SODIUM CHLORIDE 0.9% 250 ML IV ONE (20:44)
[2022-04-30] MEDS ORDERED: ATORVASTATIN CALCIUM 20 MG TABLET PO SCH (21:00)
[2022-04-30] MEDS ORDERED: MELATONIN 3 MG TABLET PO PRN (21:00)
[2022-04-30] MEDS ORDERED: ChlorproMAZINE HCL 100 MG TABLET PO SCH (21:00)
[2022-04-30] MEDS: CefTRIAXone 1 GM/DEXTROSE 50 ML IV SCH (22:51)
[2022-04-30] MEDS ORDERED: SODIUM CHLORIDE 0.9% 500 ML IV ONE (23:22)
[2022-05-01 03:45] VITALS: BP 128/75
[2022-05-01] MEDS: RINGERS SOLUTION,LACTATED 1,000 ML IV SCH (05:42)
[2022-05-01 06:37] LABS: VANCOMYCIN,RANDOM 12.8 mcg/mL (25.0-50.0)
[2022-05-01 07:30] VITALS: BP 131/83
[2022-05-01] MEDS ORDERED: SODIUM CHLORIDE 0.9% 250 ML IV ONE (08:30)
[2022-05-01 08:31] LABS: ANION GAP 11 mmol/L (8-16); CALCIUM, TOTAL 8.8 mg/dL (8.8-10.5); CARBON DIOXIDE 24 mmol/L (22-29); CHLORIDE 105 mmol/L (98-107); CREATININE 1.06 mg/dL (0.60-1.30); GLUCOSE,RANDOM 104 mg/dL (70-110); POTASSIUM 3.7 mmol/L (3.5-5.1); SODIUM SERUM 140 mmol/L (136-145); UREA NITROGEN, BLOOD 12 mg/dL (7-18)
[2022-05-01 08:32] LABS: GLOMERULAR FILTR. RATE CALC > 60 mL/min (>60)
[2022-05-01] MEDS: VANCOMYCIN HCL 1.5 GM in DEXTROSE 5%-WATER 250 ML IV SCH (08:32)
[2022-05-01] MEDS: HEPARIN SODIUM,PORCINE 5,000 UNITS/ML VIAL SQ SCH ×2 (08:32→16:11)
[2022-05-01] MEDS: OXcarbazepine 300 MG TABLET PO SCH (08:33)
[2022-05-01] MEDS: OMEPRAZOLE 20 MG CAPSULE PO SCH (08:33)
[2022-05-01] MEDS: OMEGA-3/DHA/EPA/FISH OIL 1,000 MG CAPSULE PO SCH (08:33)
[2022-05-01] MEDS: BusPIRone HCL 10 MG TABLET PO SCH ×2 (08:34→16:11)
[2022-05-01] MEDS: FOLIC ACID 0.4 MG TABLET PO SCH (08:34)
[2022-05-01] MEDS: ATENOLOL 25 MG TABLET PO SCH (08:35)
[2022-05-01] MEDS: AmLODIPine BESYLATE 5 MG TABLET PO SCH (08:35)
[2022-05-01] MEDS: BuPROPion HCL XL 150 MG ER TABLET PO SCH (08:36)
[2022-05-01] MEDS: LISINOPRIL 20 MG TABLET PO SCH (09:00)
[2022-05-01 12:31] VITALS: BP 121/73
[2022-05-01 16:14] VITALS: BP 147/81
== END 2022-05-01 18:08 | disposition left against medical advice (07) | DRG 383 ==
LOC: EMS 18:19 → 6N 21:45
PROVIDERS: ADMIT Internal Medicine; ATTEND Internal Medicine
PROC: 3E0234Z Introduction of Serum, Toxoid and Vaccine into Muscle, Percutaneous Approach (ICD-10-PCS; principal; 2022-04-29)
DX: L03.115 Cellulitis of right lower limb (principal); R65.11 Systemic inflammatory response syndrome (SIRS) of non-infectious origin with acute organ dysfunction; N17.9 Acute kidney failure, unspecified; F25.9 Schizoaffective disorder, unspecified; E66.01 Morbid (severe) obesity due to excess calories; Z20.822 Contact with and (suspected) exposure to COVID-19; F17.210 Nicotine dependence, cigarettes, uncomplicated; Z53.29 Procedure and treatment not carried out because of patient's decision for other reasons; R19.7 Diarrhea, unspecified; I10 Essential (primary) hypertension; F32.A Depression, unspecified; K21.9 Gastro-esophageal reflux disease without esophagitis; R00.0 Tachycardia, unspecified; Z68.41 Body mass index [BMI] 40.0-44.9, adult; Z23 Encounter for immunization; Z82.49 Family history of ischemic heart disease and other diseases of the circulatory system; Z79.899 Other long term (current) drug therapy; Z71.6 Tobacco abuse counseling; Z71.3 Dietary counseling and surveillance
CPT/HCPCS: 80048; 80053; 80202; 81001; 82570; 83605; 83615; 84300; 85025; 85379; 87040; 90715; 93970; 99285; J0696; J1644; J2270; J3370; J7040; J7050; J7060; J7120; Q9967

== ENCOUNTER 2023-02-28 15:13 | Emergency (ER) | payer OTHER ==
[~2023-02-28] VITALS: Ht 188 cm; Wt 140.9 kg
[~2023-02-28 15:13] MED LIST changes: +ACET-2521 PO; +ARIP882S2 IM; +ATOR20TA PO; -ATOR20TA86 PO; +BUSP10TA23 PO; -BUSP15 PO; +FURO-151 PO; -OXCA300T57 PO
[2023-02-28] MEDS ORDERED: IBUPROFEN 600 MG TABLET PO ONE (17:00)
[2023-02-28 18:24] VITALS: BP 148/88
== END 2023-02-28 18:52 | disposition home or self-care (01) ==
LOC: EMS 15:18
DX: S60.221A Contusion of right hand, initial encounter (principal); G24.01 Drug induced subacute dyskinesia; F20.9 Schizophrenia, unspecified; K21.9 Gastro-esophageal reflux disease without esophagitis; I10 Essential (primary) hypertension; F32.A Depression, unspecified; F17.210 Nicotine dependence, cigarettes, uncomplicated; Z79.899 Other long term (current) drug therapy; W22.01XA Walked into wall, initial encounter; Y93.89 Activity, other specified; Y92.89 Other specified places as the place of occurrence of the external cause; Y99.8 Other external cause status
CPT/HCPCS: 99283

== ENCOUNTER 2023-06-26 15:54 | Emergency (ER) | payer OTHER ==
[~2023-06-26] VITALS: Ht 175.3 cm; Wt 115.9 kg
[2023-06-26 16:21] LABS: BASOPHILS % (AUTO) 0.6 % (0.0-2.0); EOSINOPHILS % (AUTO) 1.5 % (1.0-6.0); HEMATOCRIT 40.7 % (41-53); HEMOGLOBIN 13.2 g/dL (13.5-17.5); LYMPHOCYTES # (AUTO) 2.5 K/uL (1.0-4.8); LYMPHOCYTES % (AUTO) 29.4 % (22.0-44.0); MEAN CORPUSCULAR HEMOGLOBIN 25.2 pg (26.0-34.0); MEAN CORPUSCULAR HGB CONC 32.5 G/dL (31.0-37.0); MEAN CORPUSCULAR VOLUME 77 fL (80-100); MONOCYTES # (AUTO) 0.9 K/uL (0.1-1.0); MONOCYTES % (AUTO) 10.4 % (2.0-9.0); NEUTROPHILS # (AUTO) 4.9 K/uL (1.8-7.7); NEUTROPHILS % (AUTO) 58.1 % (40.0-70.0); PLATELET COUNT (AUTO) 236 K/uL (150-450); RED BLOOD CELL COUNT(AUTO) 5.27 MIL/uL (4.50-5.90); RED CELL DISTRIBUTION WIDTH 15.2 % (11.5-14.5); WHITE BLOOD COUNT (AUTO) 8.4 K/uL (4.5-11.0)
[2023-06-26 16:30] VITALS: TEMP 98.2
[2023-06-26 16:33] LABS: ANION GAP 11 mmol/L (8-16); CARBON DIOXIDE 26 mmol/L (22-29); CHLORIDE 104 mmol/L (98-107); CREATININE 1.31 mg/dL (0.60-1.30); GLOMERULAR FILTR. RATE CALC 59 mL/min (>60); GLUCOSE,RANDOM 112 mg/dL (70-110); POTASSIUM 3.9 mmol/L (3.5-5.1); SODIUM SERUM 141 mmol/L (136-145); UREA NITROGEN, BLOOD 10 mg/dL (7-18)
[2023-06-26 16:39] LABS: ALANINE AMINOTRANSFERASE 30 U/L (12-78); ALKALINE PHOSPHATASE 97 U/L (46-116); ASPARTATE AMINOTRANSFERASE 24 U/L (15-37); BILIRUBIN,TOTAL 0.4 mg/dL (0.1-1.0)
[2023-06-26 16:44] LABS: ALCOHOL, BLOOD (SERUM) < 3 mg/dL (0-10)
[2023-06-26] MEDS ORDERED: HALOPERIDOL 5 MG TABLET PO ONE (18:00)
[2023-06-26 18:57] VITALS: BP 146/77; PULSE 88; RESP 18
[2023-06-26 19:15] LABS: COVID AG,FIA SOURCE NASAL SWAB
[2023-06-26 19:44] LABS: SARS-COV2 (COVID) ANTIGEN,FIA Negative (Negative)
== END 2023-06-26 19:40 | disposition home or self-care (01) ==
LOC: EMS 15:56
DX: R44.0 Auditory hallucinations (principal); F32.A Depression, unspecified; I10 Essential (primary) hypertension; F17.210 Nicotine dependence, cigarettes, uncomplicated; Z20.822 Contact with and (suspected) exposure to COVID-19
CPT/HCPCS: 99284; 87426; 80053; 85025; 36415; G0480; C9803

== ENCOUNTER 2023-12-08 11:42 | Emergency (ER) | payer OTHER ==
[~2023-12-08] VITALS: Ht 190.5 cm; Wt 145.4 kg
[2023-12-08] MEDS ORDERED: FINA-27 PO (11:52)
[2023-12-08 12:20] LABS: BASOPHILS % (AUTO) 0.5 % (0.0-2.0); EOSINOPHILS % (AUTO) 0.9 % (1.0-6.0); HEMATOCRIT 41.8 % (41-53); HEMOGLOBIN 13.6 g/dL (13.5-17.5); LYMPHOCYTES % (AUTO) 14.6 % (22.0-44.0); MEAN CORPUSCULAR HEMOGLOBIN 24.8 pg (26.0-34.0); MEAN CORPUSCULAR HGB CONC 32.6 G/dL (31.0-37.0); MEAN CORPUSCULAR VOLUME 76 fL (80-100); MONOCYTES # (AUTO) 1.3 K/uL (0.1-1.0); MONOCYTES % (AUTO) 9.4 % (2.0-9.0); NEUTROPHILS % (AUTO) 74.6 % (40.0-70.0); PLATELET COUNT (AUTO) 188 K/uL (150-450); RED BLOOD CELL COUNT(AUTO) 5.49 MIL/uL (4.50-5.90); RED CELL DISTRIBUTION WIDTH 16.2 % (11.5-14.5); WHITE BLOOD COUNT (AUTO) 13.4 K/uL (4.5-11.0)
[2023-12-08 12:27] LABS: ANION GAP 10 mmol/L (8-16); CARBON DIOXIDE 26 mmol/L (22-29); CHLORIDE 102 mmol/L (98-107); CREATININE 1.15 mg/dL (0.60-1.30); GLOMERULAR FILTR. RATE CALC > 60 mL/min (>60); GLUCOSE,RANDOM 117 mg/dL (70-110); POTASSIUM 3.8 mmol/L (3.5-5.1); SODIUM SERUM 138 mmol/L (136-145); UREA NITROGEN, BLOOD 10 mg/dL (7-18)
[2023-12-08 12:32] LABS: ALANINE AMINOTRANSFERASE 27 U/L (12-78); ALBUMIN 3.9 g/dL (3.4-5.0); ALKALINE PHOSPHATASE 109 U/L (46-116); ASPARTATE AMINOTRANSFERASE 13 U/L (15-37); BILIRUBIN,TOTAL 0.4 mg/dL (0.1-1.0); TOTAL PROTEIN, SERUM 7.3 g/dL (6.4-8.2)
[2023-12-08 12:35] LABS: ALCOHOL, BLOOD (SERUM) < 3 mg/dL (0-10)
[2023-12-08] MEDS ORDERED: ATOR40TA28 PO (13:47)
[2023-12-08] MEDS ORDERED: SEMA3TAB4 PO (13:47)
[2023-12-08] MEDS ORDERED: TAMS0.4C94 PO (13:47)
[2023-12-08] MEDS ORDERED: BUME1TAB34 PO (13:47)
[2023-12-08 13:49] VITALS: BP 143/99; PULSE 103; RESP 20; TEMP 98.3
[2023-12-08 14:51] LABS: COVID AG,FIA SOURCE NASAL SWAB
[2023-12-08] MEDS: ACETAMINOPHEN 500 MG TABLET PO ONE (14:54)
[2023-12-08 14:57] LABS: APPEARANCE,URINE CLEAR (CLEAR); BILIRUBIN,URINE NEGATIVE (NEGATIVE); COLOR,URINE YELLOW (YELLOW); GLUCOSE, URINE (UA) NEGATIVE (NEGATIVE); KETONES,URINE NEGATIVE (NEGATIVE); LEUKOCYTE ESTERASE ,URINE NEGATIVE (NEGATIVE); NITRATE,URINE NEGATIVE (NEGATIVE); OCCULT BLOOD,URINE NEGATIVE (NEGATIVE); PROTEIN,URINE NEGATIVE (NEGATIVE); SPECIFIC GRAVITIY, URINE 1.025 (1.003-1.030); UROBILINOGEN,URINE <=1.0 mg/dL (<=1.0)
[2023-12-08 15:03] LABS: ALCOHOL, URINE DRUG SCREEN NEGATIVE (NEGATIVE); AMPHET/METH SCREEN,URINE NEGATIVE (NEGATIVE); BARBITURATE SCREEN, URINE NEGATIVE (NEGATIVE); BENZODIAZEPINES SCREEN,URINE NEGATIVE (NEGATIVE); CANNABINOID SCREEN,URINE NEGATIVE (NEGATIVE); COCAINE SCREEN,URINE NEGATIVE (NEGATIVE); METHADONE SCREEN, URINE NEGATIVE (NEGATIVE); OPIATE SCREEN,URINE NEGATIVE (NEGATIVE); PHENCYCLIDINE SCREEN,URINE NEGATIVE (NEGATIVE)
[2023-12-08 15:11] LABS: SARS-COV2 (COVID) ANTIGEN,FIA Negative (Negative)
[2023-12-08 15:12] LABS: INFLUENZA TYPE A NEGATIVE FOR TYPE A (NEGATIVE); INFLUENZA TYPE B NEGATIVE FOR TYPE B (NEGATIVE)
== END 2023-12-08 15:31 | disposition home or self-care (01) ==
LOC: EMS 12:46
DX: F20.9 Schizophrenia, unspecified (principal); R52 Pain, unspecified; F32.A Depression, unspecified; I10 Essential (primary) hypertension; F17.210 Nicotine dependence, cigarettes, uncomplicated; Z20.822 Contact with and (suspected) exposure to COVID-19
CPT/HCPCS: 99284; 87426; 80053; 81003; 85025; 87804; 36415; 93005; 80307; G0480

== ENCOUNTER 2024-05-19 07:46 | Inpatient (IN) | payer MEDICAID, OTHER ==
[~2024-05-19] VITALS: Ht 188 cm; Wt 109.9 kg
[~2024-05-19 07:46] MED LIST changes: -ACET-2521 PO; -ARIP882S2 IM; -ATOR20TA PO; +ATOR40TA28 PO; +BUME1TAB50 PO; -BUPR-50 PO; +BUPR-514 PO; -FOLI0.4T6 PO; -FURO-151 PO; -HYDR25TA2 PO; +SEMA3TAB4 PO; +TAMS0.4C94 PO
[2024-05-19 08:48] LABS: HEMATOCRIT 43.4 % (41-53); HEMOGLOBIN 14.3 g/dL (13.5-17.5); MEAN CORPUSCULAR VOLUME 76 fL (80-100); RED BLOOD CELL COUNT(AUTO) 5.75 MIL/uL (4.50-5.90); WHITE BLOOD COUNT (AUTO) 8.5 K/uL (4.5-11.0)
[2024-05-19 08:49] LABS: BASOPHILS % (AUTO) 0.8 % (0.0-2.0); EOSINOPHILS % (AUTO) 4.8 % (1.0-6.0); LYMPHOCYTES # (AUTO) 2.8 K/uL (1.0-4.8); LYMPHOCYTES % (AUTO) 32.8 % (22.0-44.0); MEAN CORPUSCULAR HEMOGLOBIN 24.8 pg (26.0-34.0); MEAN CORPUSCULAR HGB CONC 32.9 G/dL (31.0-37.0); MONOCYTES # (AUTO) 0.9 K/uL (0.1-1.0); MONOCYTES % (AUTO) 10.3 % (2.0-9.0); NEUTROPHILS # (AUTO) 4.3 K/uL (1.8-7.7); NEUTROPHILS % (AUTO) 51.3 % (40.0-70.0); PLATELET COUNT (AUTO) 231 K/uL (150-450); RED CELL DISTRIBUTION WIDTH 16.1 % (11.5-14.5)
[2024-05-19 09:41] LABS: ANION GAP 9 mmol/L (8-16); CALCIUM, TOTAL 8.4 mg/dL (8.8-10.5); CARBON DIOXIDE 26 mmol/L (22-29); CHLORIDE 102 mmol/L (98-107); CREATININE 1.32 mg/dL (0.60-1.30); GLOMERULAR FILTR. RATE CALC 59 mL/min (>60); GLUCOSE,RANDOM 110 mg/dL (70-110); POTASSIUM 3.6 mmol/L (3.5-5.1); SODIUM SERUM 137 mmol/L (136-145); UREA NITROGEN, BLOOD 13 mg/dL (7-18)
[2024-05-19 09:47] LABS: ALCOHOL, BLOOD (SERUM) < 3 mg/dL (0-10)
[2024-05-19] MEDS ORDERED: LORazepam 2 MG TABLET PO PRN (10:45)
[2024-05-19] MEDS ORDERED: HALOPERIDOL 5 MG TABLET PO PRN (10:45)
[2024-05-19 10:52] LABS: COVID AG,FIA SOURCE NASAL SWAB
[2024-05-19 10:58] LABS: RBC MORPHOLOGY COMMENT ABNORMAL RBC MORPH
[2024-05-19 11:09] LABS: SARS-COV2 (COVID) ANTIGEN,FIA Negative (Negative)
[2024-05-19 11:27] LABS: APPEARANCE,URINE CLEAR (CLEAR); BILIRUBIN,URINE NEGATIVE (NEGATIVE); COLOR,URINE LIGHT YELLOW (YELLOW); GLUCOSE, URINE (UA) NEGATIVE (NEGATIVE); KETONES,URINE NEGATIVE (NEGATIVE); LEUKOCYTE ESTERASE ,URINE NEGATIVE (NEGATIVE); NITRATE,URINE NEGATIVE (NEGATIVE); OCCULT BLOOD,URINE NEGATIVE (NEGATIVE); PH,URINE 5.5 (5.0-8.0); PROTEIN,URINE NEGATIVE (NEGATIVE); SPECIFIC GRAVITIY, URINE 1.019 (1.003-1.030); UROBILINOGEN,URINE <=1.0 mg/dL (<=1.0)
[2024-05-19 14:07] LABS: PH,URINE DRUG SCREEN 5.5 (5.0-8.0)
[2024-05-19 14:11] LABS: ALCOHOL, URINE DRUG SCREEN NEGATIVE (NEGATIVE); AMPHET/METH SCREEN,URINE NEGATIVE (NEGATIVE); BARBITURATE SCREEN, URINE NEGATIVE (NEGATIVE); BENZODIAZEPINES SCREEN,URINE NEGATIVE (NEGATIVE); CANNABINOID SCREEN,URINE NEGATIVE (NEGATIVE); COCAINE SCREEN,URINE NEGATIVE (NEGATIVE); METHADONE SCREEN, URINE NEGATIVE (NEGATIVE); OPIATE SCREEN,URINE NEGATIVE (NEGATIVE); PHENCYCLIDINE SCREEN,URINE NEGATIVE (NEGATIVE)
[2024-05-19 15:01] VITALS: O2SAT 96
[2024-05-19 16:51] VITALS: BP 161/92; PULSE 87; RESP 18; TEMP 97.7; O2SAT 96
[2024-05-19] MEDS ORDERED: PNEUMOCOCCAL VACCINE POLYVALENT 0.5 ML SYRINGE [PPSV23] IM. ONE (18:15)
[2024-05-19] MEDS: AmLODIPine BESYLATE 5 MG TABLET PO SCH (19:15)
[2024-05-19 20:12] VITALS: BP 111/63; PULSE 90; RESP 18; TEMP 97.5; O2SAT 97
[2024-05-19] MEDS: ZOLPIDEM TARTRATE 10 MG TABLET PO PRN (20:20)
[2024-05-19] MEDS: ATORVASTATIN CALCIUM 20 MG TABLET PO SCH (20:33)
[2024-05-20] MEDS ORDERED: DOCUSATE SODIUM 100 MG CAPSULE PO PRN (05:45)
[2024-05-20] MEDS ORDERED: MAGNESIUM HYDROXIDE SUSPENSION 30 ML UDCUP PO PRN (05:45)
[2024-05-20] MEDS ORDERED: ONDANSETRON HCL 4 MG TABLET PO PRN (05:45)
[2024-05-20] MEDS ORDERED: MAG HYDROX/ALUMINUM HYD/SIMETH ES 30 ML SUSPENSION UDCUP PO PRN (05:45)
[2024-05-20] MEDS ORDERED: ALBUTEROL SULFATE HFA 90 MCG/PUFF 8 GM INHALER IH PRN (05:45)
[2024-05-20] MEDS ORDERED: PETROLATUM,WHITE 28 GM JELLY TP PRN (05:45)
[2024-05-20] MEDS ORDERED: CloNIDine HCL 0.1 MG TABLET PO PRN (05:45)
[2024-05-20] MEDS ORDERED: BENZOCAINE/MENTHOL LOZENGE PO PRN (05:45)
[2024-05-20] MEDS ORDERED: LOPERAMIDE HCL 2 MG CAPSULE PO PRN (05:45)
[2024-05-20] MEDS ORDERED: OMEPRAZOLE 20 MG CAPSULE PO PRN (05:45)
[2024-05-20] MEDS ORDERED: BACITRACIN 28 GM OINTMENT TP PRN (05:45)
[2024-05-20] MEDS ORDERED: ACETAMINOPHEN 325 MG TABLET PO PRN (05:45)
[2024-05-20] MEDS: ATENOLOL 25 MG TABLET PO SCH (08:43)
[2024-05-20] MEDS: OMEPRAZOLE 20 MG CAPSULE PO SCH (08:43)
[2024-05-20] MEDS: BACITRACIN 28 GM OINTMENT TP SCH (08:44)
[2024-05-20] MEDS: LISINOPRIL 20 MG TABLET PO SCH (08:44)
[2024-05-20 13:55] VITALS: RESP 17
[2024-05-20] MEDS: IBUPROFEN 600 MG TABLET PO PRN (13:55)
[2024-05-20 14:55] VITALS: RESP 18
[2024-05-20 20:28] VITALS: BP 138/96; PULSE 83; RESP 17; TEMP 97.1; O2SAT 94
[2024-05-21 08:19] VITALS: BP 122/76; PULSE 94; RESP 18; TEMP 98; O2SAT 95
[2024-05-21] MEDS: ARIPiprazole ER SUSPENSION 400 MG PRE-FILLED DUAL CHAMBER SYRINGE IM SCH (15:57)
[2024-05-21 20:04] VITALS: BP 120/64; PULSE 95; TEMP 98.1
[2024-05-22 08:08] VITALS: BP 134/75; PULSE 92; RESP 18; TEMP 97.5; O2SAT 98
[2024-05-22 20:34] VITALS: BP 140/86; PULSE 78; RESP 16; TEMP 97.5; O2SAT 95
[2024-05-23 08:21] VITALS: BP 144/93; PULSE 78; RESP 17; TEMP 97.3; O2SAT 97
[2024-05-23] MEDS ORDERED: ARIP400S3 IM (09:25)
[2024-05-23] MEDS ORDERED: ATOR20TA PO (09:28)
[2024-05-23 10:00] VITALS: BP 135/90
[2024-06-18] MEDS ORDERED: ARIPiprazole ER SUSPENSION 400 MG PRE-FILLED DUAL CHAMBER SYRINGE IM SCH (09:00)
== END 2024-05-23 12:50 | disposition home or self-care (01) | DRG 750 ==
LOC: EMS 07:46 → B3A 13:55
PROVIDERS: ADMIT Psychiatry & Neurology Psychiatry; ATTEND Psychiatry & Neurology Psychiatry
DX: F20.9 Schizophrenia, unspecified (principal); Z91.148 Patient's other noncompliance with medication regimen for other reason; E78.5 Hyperlipidemia, unspecified; F41.9 Anxiety disorder, unspecified; Z20.822 Contact with and (suspected) exposure to COVID-19; K59.00 Constipation, unspecified; G47.00 Insomnia, unspecified; F32.A Depression, unspecified; K21.9 Gastro-esophageal reflux disease without esophagitis; F17.210 Nicotine dependence, cigarettes, uncomplicated; I10 Essential (primary) hypertension; Z79.899 Other long term (current) drug therapy
CPT/HCPCS: 80048; 80307; 81003; 85025; 99285; G0480; J0401

== ENCOUNTER 2024-07-03 16:56 | Emergency (ER) | payer MEDICAID, OTHER ==
[~2024-07-03] VITALS: Ht 188 cm; Wt 109.1 kg
[~2024-07-03 16:56] MED LIST changes: +ARIP400S3 IM; +ATOR20TA PO; -ATOR40TA28 PO; -BUME1TAB50 PO; -BUPR-514 PO; -BUSP10TA23 PO; -CHLO100T42 PO; -DEUT12TA PO; -OMEG100015 PO; -OMEP20 PO; -OXCA150T27 PO; -SEMA3TAB4 PO; -TAMS0.4C94 PO
[2024-07-03 17:01] VITALS: TEMP 97.9
[2024-07-03] MEDS ORDERED: BUSP10TA23 PO (18:33)
[2024-07-03] MEDS ORDERED: ATOR40TA71 PO (18:33)
[2024-07-03] MEDS ORDERED: OXCA150T27 PO (18:33)
[2024-07-03] MEDS ORDERED: OMEG-237 PO (18:33)
[2024-07-03] MEDS ORDERED: BUPR-49 PO (18:33)
[2024-07-03] MEDS ORDERED: CHLO200T21 PO (18:33)
[2024-07-03] MEDS ORDERED: BUME0.5T5 PO (18:33)
[2024-07-03] MEDS ORDERED: ACET-2895 PO (18:33)
[2024-07-03] MEDS ORDERED: DICL100G60 TP (18:33)
[2024-07-03] MEDS ORDERED: OMEP20CA12 PO (18:33)
[2024-07-03] MEDS ORDERED: ARIP882S2 IM (18:33)
[2024-07-03] MEDS ORDERED: DEUT12TA PO (18:33)
[2024-07-03] MEDS ORDERED: TAMS0.4C94 PO (18:33)
[2024-07-03] MEDS ORDERED: SEMA3TAB4 PO (18:33)
[2024-07-03] MEDS ORDERED: LISI40TA9 PO (18:33)
[2024-07-03] MEDS ORDERED: AMMO225L14 TP (18:33)
[2024-07-03] MEDS: TraMADol HCL 50 MG TABLET PO ONE (18:36)
[2024-07-03 19:08] VITALS: BP 144/94; PULSE 77; RESP 16; O2SAT 96
[2024-07-03] MEDS ORDERED: TRAM50TA5 PO (20:10)
== END 2024-07-03 20:23 | disposition home or self-care (01) ==
LOC: EMS 17:02
DX: S93.401A Sprain of unspecified ligament of right ankle, initial encounter (principal); F32.A Depression, unspecified; I10 Essential (primary) hypertension; F20.9 Schizophrenia, unspecified; K21.9 Gastro-esophageal reflux disease without esophagitis; F17.210 Nicotine dependence, cigarettes, uncomplicated; X50.1XXA Overexertion from prolonged static or awkward postures, initial encounter; Y93.89 Activity, other specified; Y92.89 Other specified places as the place of occurrence of the external cause; Y99.8 Other external cause status
CPT/HCPCS: 99283

== ENCOUNTER 2024-08-11 15:35 | Emergency (ER) | payer OTHER ==
[~2024-08-11] VITALS: Ht 188 cm; Wt 147.3 kg
[~2024-08-11 15:35] MED LIST changes: +ACET-2895 PO; +AMMO225L14 TP; -ARIP400S3 IM; +ARIP882S2 IM; -ATOR20TA PO; +ATOR40TA71 PO; +BUME0.5T5 PO; +BUPR-49 PO; +BUSP10TA23 PO; +CHLO200T21 PO; +DEUT12TA PO; +DICL100G60 TP; -LISI-894 PO; +LISI40TA9 PO; +OMEG-237 PO; +OMEP20CA12 PO; +OXCA150T27 PO; +SEMA3TAB4 PO; +TAMS0.4C94 PO; +TRAM50TA5 PO
[2024-08-11 15:38] VITALS: BP 153/95; PULSE 98; RESP 18; TEMP 97.6; O2SAT 96
== END 2024-08-11 17:16 | disposition home or self-care (01) ==
LOC: EMS 15:35
DX: L85.3 Xerosis cutis (principal); B35.1 Tinea unguium; F20.9 Schizophrenia, unspecified; F32.A Depression, unspecified; I10 Essential (primary) hypertension; K21.9 Gastro-esophageal reflux disease without esophagitis; F17.210 Nicotine dependence, cigarettes, uncomplicated
CPT/HCPCS: 99281; Z7502

== ENCOUNTER 2024-09-02 04:55 | Emergency (ER) | payer OTHER ==
[~2024-09-02] VITALS: Ht 188 cm; Wt 150.0 kg
[2024-09-02] MEDS: LORazepam 1 MG TABLET PO ONE (06:42)
[2024-09-02 07:24] LABS: ANION GAP 7 mmol/L (8-16); BASOPHILS % (AUTO) 0.9 % (0.0-2.0); CALCIUM, TOTAL 8.8 mg/dL (8.8-10.5); CARBON DIOXIDE 29 mmol/L (22-29); CHLORIDE 101 mmol/L (98-107); CREATININE 1.25 mg/dL (0.60-1.30); EOSINOPHILS % (AUTO) 3.2 % (1.0-6.0); GLOMERULAR FILTR. RATE CALC > 60 mL/min (>60); GLUCOSE,RANDOM 101 mg/dL (70-110); HEMATOCRIT 42.9 % (41-53); LYMPHOCYTES # (AUTO) 2.4 K/uL (1.0-4.8); LYMPHOCYTES % (AUTO) 28.5 % (22.0-44.0); MEAN CORPUSCULAR HGB CONC 32.5 G/dL (31.0-37.0); MEAN CORPUSCULAR VOLUME 77 fL (80-100); MONOCYTES % (AUTO) 11.4 % (2.0-9.0); NEUTROPHILS # (AUTO) 4.8 K/uL (1.8-7.7); PLATELET COUNT (AUTO) 231 K/uL (150-450); POTASSIUM 4.3 mmol/L (3.5-5.1); RED BLOOD CELL COUNT(AUTO) 5.58 MIL/uL (4.50-5.90); RED CELL DISTRIBUTION WIDTH 17.3 % (11.5-14.5); SODIUM SERUM 137 mmol/L (136-145); UREA NITROGEN, BLOOD 10 mg/dL (7-18); WHITE BLOOD COUNT (AUTO) 8.6 K/uL (4.5-11.0)
[2024-09-02 07:35] LABS: ALCOHOL, BLOOD (SERUM) < 3 mg/dL (0-10)
[2024-09-02 08:00] VITALS: BP 171/93; PULSE 90; RESP 20; TEMP 97.7; O2SAT 97
== END 2024-09-02 08:11 | disposition home or self-care (01) ==
LOC: EMS 04:56
DX: F43.0 Acute stress reaction (principal); F25.9 Schizoaffective disorder, unspecified; F41.9 Anxiety disorder, unspecified; I11.0 Hypertensive heart disease with heart failure; F17.210 Nicotine dependence, cigarettes, uncomplicated; F32.A Depression, unspecified; I50.9 Heart failure, unspecified; K21.9 Gastro-esophageal reflux disease without esophagitis
CPT/HCPCS: 99283; 80048; 85025; 36415; G0480

== ENCOUNTER 2024-10-29 18:48 | Emergency (ER) | payer OTHER ==
[~2024-10-29] VITALS: Ht 188 cm; Wt 146.0 kg
[2024-10-29 19:02] VITALS: TEMP 98.4
[2024-10-29 20:17] LABS: BASOPHILS % (AUTO) 0.7 % (0.0-2.0); EOSINOPHILS % (AUTO) 1.6 % (1.0-6.0); HEMATOCRIT 42.9 % (41-53); HEMOGLOBIN 13.9 g/dL (13.5-17.5); LYMPHOCYTES # (AUTO) 2.7 K/uL (1.0-4.8); LYMPHOCYTES % (AUTO) 25.6 % (22.0-44.0); MEAN CORPUSCULAR HEMOGLOBIN 24.8 pg (26.0-34.0); MEAN CORPUSCULAR HGB CONC 32.5 G/dL (31.0-37.0); MEAN CORPUSCULAR VOLUME 77 fL (80-100); MONOCYTES # (AUTO) 0.9 K/uL (0.1-1.0); MONOCYTES % (AUTO) 8.9 % (2.0-9.0); NEUTROPHILS # (AUTO) 6.6 K/uL (1.8-7.7); NEUTROPHILS % (AUTO) 63.2 % (40.0-70.0); PLATELET COUNT (AUTO) 281 K/uL (150-450); RED CELL DISTRIBUTION WIDTH 16.3 % (11.5-14.5); WHITE BLOOD COUNT (AUTO) 10.4 K/uL (4.5-11.0)
[2024-10-29 20:23] LABS: COVID AG,FIA SOURCE NASAL SWAB
[2024-10-29 20:25] LABS: ANION GAP 10 mmol/L (8-16); CALCIUM, TOTAL 8.6 mg/dL (8.8-10.5); CARBON DIOXIDE 26 mmol/L (22-29); CHLORIDE 102 mmol/L (98-107); CREATININE 1.29 mg/dL (0.60-1.30); GLOMERULAR FILTR. RATE CALC 60 mL/min (>60); GLUCOSE,RANDOM 109 mg/dL (70-110); POTASSIUM 3.7 mmol/L (3.5-5.1); SODIUM SERUM 138 mmol/L (136-145); UREA NITROGEN, BLOOD 9 mg/dL (7-18)
[2024-10-29 20:33] LABS: ALCOHOL, BLOOD (SERUM) < 3 mg/dL (0-10)
[2024-10-29 20:41] LABS: SARS-COV2 (COVID) ANTIGEN,FIA Negative (Negative)
[2024-10-29] MEDS: LORazepam 2 MG TABLET PO ONE (20:44)
[2024-10-29] MEDS: HALOPERIDOL 5 MG TABLET PO ONE (20:45)
[2024-10-29 20:56] VITALS: BP 144/82; PULSE 92; RESP 20; O2SAT 98
== END 2024-10-29 21:54 | disposition home or self-care (01) ==
LOC: EMS 18:48
DX: R44.3 Hallucinations, unspecified (principal); F20.9 Schizophrenia, unspecified; F32.A Depression, unspecified; I11.0 Hypertensive heart disease with heart failure; I50.9 Heart failure, unspecified; K21.9 Gastro-esophageal reflux disease without esophagitis; F17.210 Nicotine dependence, cigarettes, uncomplicated; Z79.899 Other long term (current) drug therapy; Z20.822 Contact with and (suspected) exposure to COVID-19
CPT/HCPCS: 99284; 87426; 80048; 85025; 36415; G0480

== ENCOUNTER 2024-11-25 10:50 | Emergency (ER) | payer OTHER ==
[~2024-11-25] VITALS: Ht 188 cm; Wt 340.0 kg
[2024-11-25 11:01] VITALS: TEMP 98.1
[2024-11-25 11:24] LABS: BASOPHILS % (AUTO) 0.8 % (0.0-2.0); EOSINOPHILS % (AUTO) 2.3 % (1.0-6.0); HEMATOCRIT 41.9 % (41-53); HEMOGLOBIN 13.8 g/dL (13.5-17.5); LYMPHOCYTES # (AUTO) 2.5 K/uL (1.0-4.8); LYMPHOCYTES % (AUTO) 29.7 % (22.0-44.0); MEAN CORPUSCULAR HEMOGLOBIN 25.2 pg (26.0-34.0); MEAN CORPUSCULAR VOLUME 77 fL (80-100); MONOCYTES # (AUTO) 0.7 K/uL (0.1-1.0); NEUTROPHILS % (AUTO) 59.2 % (40.0-70.0); PLATELET COUNT (AUTO) 259 K/uL (150-450); RED BLOOD CELL COUNT(AUTO) 5.47 MIL/uL (4.50-5.90); RED CELL DISTRIBUTION WIDTH 15.7 % (11.5-14.5); WHITE BLOOD COUNT (AUTO) 8.4 K/uL (4.5-11.0)
[2024-11-25 11:31] LABS: ANION GAP 12 mmol/L (8-16); CALCIUM, TOTAL 9.1 mg/dL (8.8-10.5); CARBON DIOXIDE 25 mmol/L (22-29); CHLORIDE 102 mmol/L (98-107); CREATININE 1.29 mg/dL (0.60-1.30); GLOMERULAR FILTR. RATE CALC 60 mL/min (>60); GLUCOSE,RANDOM 106 mg/dL (70-110); POTASSIUM 3.8 mmol/L (3.5-5.1); SODIUM SERUM 139 mmol/L (136-145); UREA NITROGEN, BLOOD 10 mg/dL (7-18)
[2024-11-25 11:46] LABS: COVID AG,FIA SOURCE NASAL SWAB
[2024-11-25 11:52] LABS: RBC MORPHOLOGY COMMENT ABNORMAL RBC MORPH
[2024-11-25 12:05] VITALS: BP 127/77; PULSE 94; RESP 18; O2SAT 97
[2024-11-25 12:30] LABS: SARS-COV2 (COVID) ANTIGEN,FIA Negative (Negative)
[2024-11-25 15:02] LABS: ALCOHOL, BLOOD (SERUM) < 3 mg/dL (0-10)
== END 2024-11-25 12:22 | disposition home or self-care (01) ==
LOC: EMS 10:53
DX: F20.9 Schizophrenia, unspecified (principal); I11.0 Hypertensive heart disease with heart failure; I50.9 Heart failure, unspecified; K21.9 Gastro-esophageal reflux disease without esophagitis; F32.A Depression, unspecified; F12.90 Cannabis use, unspecified, uncomplicated; Z79.899 Other long term (current) drug therapy; Z20.822 Contact with and (suspected) exposure to COVID-19
CPT/HCPCS: 99283; 87426; 80048; 85025; 36415; G0480

== ENCOUNTER 2025-04-22 17:45 | Emergency (ER) | payer OTHER ==
[~2025-04-22] VITALS: Ht 188 cm; Wt 113.6 kg
[~2025-04-22 17:45] MED LIST changes: -ACET-2895 PO; +ACET-3800 PO; +LISI-1024 PO; -LISI40TA9 PO
[2025-04-22 19:50] VITALS: BP 134/79; PULSE 101; RESP 18; TEMP 98.205296; O2SAT 94
== END 2025-04-23 00:15 | disposition left against medical advice (07) ==
LOC: EMS 17:47
DX: M25.519 Pain in unspecified shoulder (principal); Z53.21 Procedure and treatment not carried out due to patient leaving prior to being seen by health care provider

== ENCOUNTER 2025-04-30 16:16 | Inpatient (IN) | payer OTHER ==
[~2025-04-30] VITALS: Ht 182.9 cm; Wt 144.8 kg
[2025-04-30] MEDS ORDERED: PSEU-224 PO (16:21)
[2025-04-30] MEDS: ALBUTEROL SULFATE 2.5 MG/0.5 ML 5 ML NEB SOLUTION NEB ONE (16:30)
[2025-04-30] MEDS: IPRATROPIUM BROMIDE 0.5 MG/2.5 ML NEB SOLUTION NEB ONE (16:30)
[2025-04-30] MEDS: EPINEPHrine 1:1,000 [1 MG/ML] VIAL IM ONE (16:36)
[2025-04-30 16:39] LABS: PLATELET COUNT (AUTO) 313 K/uL (150-450); RED BLOOD CELL COUNT(AUTO) 4.56 MIL/uL (4.50-5.90); RED CELL DISTRIBUTION WIDTH 16.6 % (11.5-14.5); WHITE BLOOD COUNT (AUTO) 16.8 K/uL (4.5-11.0)
[2025-04-30 16:43] LABS: CALCIUM, TOTAL 8.4 mg/dL (8.8-10.5); CREATININE 1.76 mg/dL (0.60-1.30); GLOMERULAR FILTR. RATE CALC 42 mL/min (>60); GLUCOSE,RANDOM 160 mg/dL (70-110); SODIUM SERUM 130 mmol/L (136-145); UREA NITROGEN, BLOOD 28 mg/dL (7-18)
[2025-04-30] MEDS: FUROSEMIDE 40 MG/4 ML VIAL IVP ONE (16:43)
[2025-04-30 16:45] VITALS: PULSE 105; PULSE 74; RESP 24; O2SAT 99
[2025-04-30 16:54] LABS: TROPONIN I-HIGH SENSITIVITY Less Than 4 ng/L (<76)
[2025-04-30] MEDS ORDERED: 0.9% SODIUM CHLORIDE 10 ML SYRINGE IVP PRN (17:00)
[2025-04-30] MEDS: CefTRIAXone 1 GM/DEXTROSE 50 ML IV ONE (17:33)
[2025-04-30 17:38] LABS: LACTIC ACID 2.1 mmol/L (0.4-2.0)
[2025-04-30] MEDS: AZITHROMYCIN 500 MG/NS 250 ML IV ONE (17:55)
[2025-04-30] MEDS: SODIUM CHLORIDE 0.9% 4,100 ML IV ONE (18:00)
[2025-04-30] MEDS: SODIUM CHLORIDE 0.9% 2,750 ML IV ONE (18:00)
[2025-04-30] MEDS: SODIUM CHLORIDE 0.9% 1,000 ML IV ONE (18:14)
[2025-04-30] MEDS ORDERED: SEMA0.5P SQ (18:24)
[2025-04-30] MEDS ORDERED: ALBU18HF12 IH (18:24)
[2025-04-30] MEDS ORDERED: MIRA25TA5 PO (18:24)
[2025-04-30 19:20] LABS: ABG BASE EXCESS -3.6 mmol/L (-2.0-3.0); ABG CARBOXYHEMOGLOBIN 0.8 % (0.5-1.5); ABG HCO3 22.0 mmol/L (21.0-28.0); ABG METHEMOGLOBIN 0.1 % (0.0-1.5); ABG OXYGEN CONTENT 18.1 mL/dL (15.0-23.0); ABG OXYGEN SATURATION 97.1 % (94.0-98.0); ABG OXYHEMOGLOBIN 96.2 % (94.0-98.0); ABG PCO2 36 mmHg (32.0-48.0); ABG PH 7.394 (7.350-7.450); ABG TOTAL HEMOGLOBIN 13.3 G/dL (13.5-17.5); FRACTIONATED INSPIRED OXYGEN 100.0 % (21-100.0); PO2, ARTERIAL BG 95.0 mmHg (83.0-108.0); SOURCE, BLOOD GAS ARTERIAL; TEMPERATURE, FAHRENHEIT, BG 98.6 FAHREN (96.0-98.6)
[2025-04-30 19:22] LABS: ALLEN TEST, BLOOD GAS POS; O2 DEVICE,BLOOD GAS BIPAP (ROOM AIR); SET RATE, BG 20.0 min.; SITE, BLOOD GAS LFT RADIAL
[2025-04-30 19:24] LABS: ABG A-A DIFF O2 582.3 mmHg (10-20.0)
[2025-04-30 20:10] VITALS: PULSE 112; RESP 26; O2SAT 96
[2025-04-30 20:32] VITALS: BP 127/80; PULSE 113; RESP 20; TEMP 100.8; O2SAT 96
[2025-04-30 22:28] VITALS: TEMP 98.4; O2SAT 96
[2025-04-30 23:00] VITALS: PULSE 110; RESP 24; O2SAT 95
[2025-05-01] VITALS (13 sets, daily range): BP systolic 120–142; BP diastolic 70–79; PULSE 94–112; RESP 18–26; TEMP 97.5–99.7; O2SAT 91–97
[2025-05-01 06:22] LABS: PLATELET COUNT (AUTO) 322 K/uL (150-450); RED BLOOD CELL COUNT(AUTO) 4.52 MIL/uL (4.50-5.90); RED CELL DISTRIBUTION WIDTH 16.6 % (11.5-14.5); WHITE BLOOD COUNT (AUTO) 19.2 K/uL (4.5-11.0)
[2025-05-01 06:51] LABS: CALCIUM, TOTAL 8.9 mg/dL (8.8-10.5); CREATININE 1.48 mg/dL (0.60-1.30); GLOMERULAR FILTR. RATE CALC 51.0 mL/min (>60); GLUCOSE,RANDOM 147.0 mg/dL (70-110); SODIUM SERUM 133.0 mmol/L (136-145); UREA NITROGEN, BLOOD 27.0 mg/dL (7-18)
[2025-05-01] MEDS: *CLINICAL-LEVOFLOXACIN IVPB DOSING CLINICAL ONE (11:24)
[2025-05-01 17:31] LABS: COVID AG,FIA SOURCE NASAL SWAB
[2025-05-01 17:58] LABS: SARS-COV2 (COVID) ANTIGEN,FIA Negative (Negative)
[2025-05-01 17:59] LABS: INFLUENZA TYPE A NEGATIVE FOR TYPE A (NEGATIVE); INFLUENZA TYPE B NEGATIVE FOR TYPE B (NEGATIVE)
[2025-05-01] MEDS ORDERED: SODIUM CHLORIDE 0.9% 250 ML IV ONE (18:18)
[2025-05-01] MEDS: LEVOFLOXACIN 750 MG/D5% WATER 150 ML IV SCH (18:39)
[2025-05-01] MEDS ORDERED: HYDROCODONE/ACETAMINOPHEN 5-325 MG TABLET PO PRN (21:15)
[2025-05-01] MEDS ORDERED: MAGNESIUM HYDROXIDE SUSPENSION 30 ML UDCUP PO PRN (21:15)
[2025-05-01] MEDS ORDERED: IPRATROPIUM BROMIDE 0.5 MG/2.5 ML NEB SOLUTION NEB PRN (21:15)
[2025-05-01] MEDS ORDERED: MORPHINE SULFATE 2 MG/ML SYRINGE IVP PRN (21:15)
[2025-05-02] VITALS (12 sets, daily range): BP systolic 107–157; BP diastolic 63–95; PULSE 87–121; RESP 17–46; TEMP 98.3–100.6; O2SAT 89–98
[2025-05-02 00:30] LABS: APPEARANCE,URINE CLEAR (CLEAR); GLUCOSE, URINE (UA) NEGATIVE (NEGATIVE); LEUKOCYTE ESTERASE ,URINE NEGATIVE (NEGATIVE); NITRATE,URINE NEGATIVE (NEGATIVE); OCCULT BLOOD,URINE NEGATIVE (NEGATIVE); SPECIFIC GRAVITIY, URINE 1.020 (1.003-1.030)
[2025-05-02] MEDS: HEPARIN SODIUM,PORCINE 5,000 UNITS/ML VIAL SQ SCH (00:55)
[2025-05-02 06:19] LABS: PLATELET COUNT (AUTO) 332 K/uL (150-450); RED BLOOD CELL COUNT(AUTO) 4.41 MIL/uL (4.50-5.90); RED CELL DISTRIBUTION WIDTH 16.9 % (11.5-14.5); WHITE BLOOD COUNT (AUTO) 16.1 K/uL (4.5-11.0)
[2025-05-02 06:32] LABS: ASPARTATE AMINOTRANSFERASE 36 U/L (15-37); CALCIUM, TOTAL 8.6 mg/dL (8.8-10.5); CREATININE 1.01 mg/dL (0.60-1.30); GLOMERULAR FILTR. RATE CALC > 60 mL/min (>60); GLUCOSE,RANDOM 107 mg/dL (70-110); SODIUM SERUM 137 mmol/L (136-145); TOTAL PROTEIN, SERUM 6.5 g/dL (6.4-8.2); UREA NITROGEN, BLOOD 26 mg/dL (7-18)
[2025-05-02] MEDS: PANTOPRAZOLE SODIUM 40 MG/VIAL IVP SCH (08:33)
[2025-05-02] MEDS: LORazepam 2 MG/ML VIAL IVP ONE (08:35)
[2025-05-02] MEDS: ETHYL ALCOHOL 62% ANTISEPTIC NASAL SANITIZER 0.6 ML AMPUL NASAL SCH (08:49)
[2025-05-02] MEDS: TAMSULOSIN HCL 0.4 MG CAPSULE PO SCH (08:49)
[2025-05-02] MEDS: ATORVASTATIN CALCIUM 40 MG TABLET PO SCH (08:50)
[2025-05-02] MEDS: DOCUSATE SODIUM 100 MG CAPSULE PO SCH (08:50)
[2025-05-02] MEDS: ACETAMINOPHEN 325 MG TABLET PO PRN (08:50)
[2025-05-02] MEDS: BUMETANIDE 1 MG TABLET PO SCH (08:50)
[2025-05-02] MEDS ORDERED: OMEPRAZOLE 20 MG CAPSULE PO SCH (09:00)
[2025-05-02 09:19] LABS: ABG BASE EXCESS 3.6 mmol/L (-2.0-3.0); ABG CARBOXYHEMOGLOBIN 0.3 % (0.5-1.5); ABG HCO3 27.0 mmol/L (21.0-28.0); ABG METHEMOGLOBIN 0.0 % (0.0-1.5); ABG OXYGEN CONTENT 15.9 mL/dL (15.0-23.0); ABG OXYGEN SATURATION 94.3 % (94.0-98.0); ABG OXYHEMOGLOBIN 94.0 % (94.0-98.0); ABG PCO2 48 mmHg (32.0-48.0); ABG PH 7.393 (7.350-7.450); ABG TOTAL HEMOGLOBIN 12.0 G/dL (13.5-17.5); FRACTIONATED INSPIRED OXYGEN 60.0 % (21-100.0); PO2, ARTERIAL BG 74.0 mmHg (83.0-108.0); SOURCE, BLOOD GAS ARTERIAL; TEMPERATURE, FAHRENHEIT, BG 98.3 FAHREN (96.0-98.6)
[2025-05-02 09:21] LABS: ABG A-A DIFF O2 301.4 mmHg (10-20.0); ALLEN TEST, BLOOD GAS Positive; O2 DEVICE,BLOOD GAS BIPAP (ROOM AIR); SITE, BLOOD GAS RT RADIAL; VENT MODE, BG NIPPV (ROOM AIR)
[2025-05-02 09:22] LABS: PATIENT RATE, BG 29.0 min.; PEEP,BG 6 cm H2O; SET RATE, BG 10.0 min.
[2025-05-02 09:23] LABS: INSPIRATORY TIME, BG 0.90 SEC; SPONTANEOUS VT, BG 637 ml
[2025-05-02] MEDS: DEXMEDETOMIDINE 400 MCG/NS 100 ML IV PRN (09:25)
[2025-05-02] MEDS: ONDANSETRON HCL 4 MG/2 ML VIAL IVP PRN (11:07)
[2025-05-02] MEDS ORDERED: IOHEXOL 350 MG/ML 100 ML VIAL ONE (11:40)
[2025-05-02] MEDS ORDERED: SODIUM CHLORIDE 0.9% 100 ML ONE (11:41)
[2025-05-02] MEDS ORDERED: AMLO10TA55 PO (13:09)
[2025-05-03] VITALS (16 sets, daily range): BP systolic 120–157; BP diastolic 57–101; PULSE 54–98; RESP 21–46; TEMP 97.6–100.4; O2SAT 60–97
[2025-05-03 06:10] LABS: CALCIUM, TOTAL 9.3 mg/dL (8.8-10.5); CREATININE 1.07 mg/dL (0.60-1.30); GLOMERULAR FILTR. RATE CALC > 60 mL/min (>60); GLUCOSE,RANDOM 116 mg/dL (70-110); SODIUM SERUM 139 mmol/L (136-145); UREA NITROGEN, BLOOD 28 mg/dL (7-18)
[2025-05-03 06:14] LABS: PHOSPHORUS 4.2 mg/dL (2.5-4.9)
[2025-05-03 07:59] LABS: PLATELET COUNT (AUTO) 359 K/uL (150-450); RED BLOOD CELL COUNT(AUTO) 4.65 MIL/uL (4.50-5.90); RED CELL DISTRIBUTION WIDTH 17.8 % (11.5-14.5); WHITE BLOOD COUNT (AUTO) 13.1 K/uL (4.5-11.0)
[2025-05-03] MEDS: SODIUM ZIRCONIUM CYCLOSILICATE 10 GM POWDER PACKET PO ONE (09:33)
[2025-05-03] MEDS: BuPROPion HCL XL 150 MG ER TABLET PO SCH (10:05)
[2025-05-03 10:09] LABS: RBC MORPHOLOGY COMMENT ABNORMAL RBC MORPH
[2025-05-03 11:28] LABS: ABG A-A DIFF O2 313.6 mmHg (10-20.0); ABG BASE EXCESS 1.8 mmol/L (-2.0-3.0); ABG CARBOXYHEMOGLOBIN 0.7 % (0.5-1.5); ABG HCO3 25.6 mmol/L (21.0-28.0); ABG METHEMOGLOBIN 0.0 % (0.0-1.5); ABG OXYGEN CONTENT 15.4 mL/dL (15.0-23.0); ABG OXYGEN SATURATION 91.2 % (94.0-98.0); ABG OXYHEMOGLOBIN 90.6 % (94.0-98.0); ABG PCO2 46 mmHg (32.0-48.0); ABG PH 7.387 (7.350-7.450); ABG TOTAL HEMOGLOBIN 12.1 G/dL (13.5-17.5); ALLEN TEST, BLOOD GAS Positive; FRACTIONATED INSPIRED OXYGEN 60.0 % (21-100.0); O2 DEVICE,BLOOD GAS BIPAP (ROOM AIR); PATIENT RATE, BG 33.0 min.; PO2, ARTERIAL BG 63.9 mmHg (83.0-108.0); SET RATE, BG 10.0 min.; SITE, BLOOD GAS LFT RADIAL; SOURCE, BLOOD GAS ARTERIAL; SPONTANEOUS VT, BG 650 ml; TEMPERATURE, FAHRENHEIT, BG 98.6 FAHREN (96.0-98.6)
[2025-05-03 11:29] LABS: INSPIRATORY TIME, BG 1.1 SEC
[2025-05-03] MEDS: BUDESONIDE 0.5 MG/2 ML NEB SOLUTION NEB SCH (16:10)
[2025-05-04] VITALS (17 sets, daily range): BP systolic 123–168; BP diastolic 86–112; PULSE 49–75; RESP 27–42; TEMP 97.5–98.9; O2SAT 88–97
[2025-05-04] MEDS ORDERED: SODIUM CHLORIDE 0.9% 250 ML IV ONE ×2 (00:13→17:07)
[2025-05-04 05:56] LABS: PLATELET COUNT (AUTO) 434 K/uL (150-450); RED BLOOD CELL COUNT(AUTO) 5.06 MIL/uL (4.50-5.90); RED CELL DISTRIBUTION WIDTH 17.0 % (11.5-14.5); WHITE BLOOD COUNT (AUTO) 22.7 K/uL (4.5-11.0)
[2025-05-04 06:07] LABS: CALCIUM, TOTAL 9.4 mg/dL (8.8-10.5); CREATININE 0.96 mg/dL (0.60-1.30); GLOMERULAR FILTR. RATE CALC > 60 mL/min (>60); GLUCOSE,RANDOM 184 mg/dL (70-110); SODIUM SERUM 134 mmol/L (136-145); UREA NITROGEN, BLOOD 27 mg/dL (7-18)
[2025-05-04 06:10] LABS: PHOSPHORUS 4.6 mg/dL (2.5-4.9)
[2025-05-04] MEDS: BISACODYL 10 MG RECTAL RECTAL SUPPOSITORY PR PRN (08:40)
[2025-05-04] MEDS ORDERED: DEXTROSE 50%-WATER 25 GM/50 ML SYRINGE IVP PRN (08:45)
[2025-05-04 08:50] LABS: RBC MORPHOLOGY COMMENT ABNORMAL RBC MORPH
[2025-05-04] MEDS: MetroNIDAZOLE 500 MG/NACL 100 ML IV SCH (09:17)
[2025-05-04] MEDS: INSULIN LISPRO 100 UNITS/ML SQ PRN (11:57)
[2025-05-04 12:11] LABS: GLUCOMETER DEV NAME(LOC) ICU.S7; GLUCOSE,POINT OF CARE 174 MG/DL (70-110)
[2025-05-04 14:06] LABS: ABG A-A DIFF O2 347.9 mmHg (10-20.0); ABG BASE EXCESS 0.9 mmol/L (-2.0-3.0); ABG CARBOXYHEMOGLOBIN 0.6 % (0.5-1.5); ABG HCO3 25.3 mmol/L (21.0-28.0); ABG METHEMOGLOBIN 0.1 % (0.0-1.5); ABG OXYGEN CONTENT 16.6 mL/dL (15.0-23.0); ABG OXYGEN SATURATION 94.3 % (94.0-98.0); ABG OXYHEMOGLOBIN 93.6 % (94.0-98.0); ABG PCO2 40 mmHg (32.0-48.0); ABG PH 7.425 (7.350-7.450); ABG TOTAL HEMOGLOBIN 12.6 G/dL (13.5-17.5); ALLEN TEST, BLOOD GAS Positive; FRACTIONATED INSPIRED OXYGEN 65.0 % (21-100.0); PO2, ARTERIAL BG 72.6 mmHg (83.0-108.0); SITE, BLOOD GAS LFT RADIAL; SOURCE, BLOOD GAS ARTERIAL; TEMPERATURE, FAHRENHEIT, BG 98.6 FAHREN (96.0-98.6)
[2025-05-04 14:07] LABS: O2 DEVICE,BLOOD GAS BIPAP (ROOM AIR); PATIENT RATE, BG 33.0 min.; SET RATE, BG 10.0 min.; SPONTANEOUS VT, BG 850 ml
[2025-05-04] MEDS: BUMETANIDE 0.25 MG/ML 4 ML VIAL IVP SCH (14:47)
[2025-05-04 14:55] LABS: INFLUENZA A-RTPCR,COMBO NEGATIVE (NEGATIVE); INFLUENZA B-RTPCR,COMBO NEGATIVE (NEGATIVE); RESPIRATORY SYNCYTIAL VRS-PCR NEGATIVE (NEGATIVE); SARS COVID19 RTPCR, COMBO NEGATIVE (NEGATIVE)
[2025-05-04 18:46] LABS: GLUCOMETER DEV NAME(LOC) ICU.S7; GLUCOSE,POINT OF CARE 183 MG/DL (70-110)
[2025-05-04 22:01] LABS: GLUCOMETER DEV NAME(LOC) ICUN.6; GLUCOSE,POINT OF CARE 185 MG/DL (70-110)
[2025-05-05] VITALS (18 sets, daily range): BP systolic 129–163; BP diastolic 63–93; PULSE 47–80; RESP 18–31; TEMP 97.5–98.5; O2SAT 91–98
[2025-05-05 06:00] LABS: PLATELET COUNT (AUTO) 389 K/uL (150-450); RED BLOOD CELL COUNT(AUTO) 4.83 MIL/uL (4.50-5.90); RED CELL DISTRIBUTION WIDTH 17.3 % (11.5-14.5); WHITE BLOOD COUNT (AUTO) 21.9 K/uL (4.5-11.0)
[2025-05-05 06:35] LABS: ASPARTATE AMINOTRANSFERASE 70 U/L (15-37); CALCIUM, TOTAL 8.7 mg/dL (8.8-10.5); CREATININE 1.12 mg/dL (0.60-1.30); GLOMERULAR FILTR. RATE CALC > 60 mL/min (>60); GLUCOSE,RANDOM 181 mg/dL (70-110); SODIUM SERUM 139 mmol/L (136-145); TOTAL PROTEIN, SERUM 6.9 g/dL (6.4-8.2); UREA NITROGEN, BLOOD 32 mg/dL (7-18)
[2025-05-05 06:49] LABS: LACTATE DEHYDROGENASE 222 U/L (85-227)
[2025-05-05 08:31] LABS: RBC MORPHOLOGY COMMENT ABNORMAL RBC MORPH
[2025-05-05 08:41] LABS: GLUCOMETER DEV NAME(LOC) ICUN.6; GLUCOSE,POINT OF CARE 178 MG/DL (70-110)
[2025-05-05 08:53] LABS: PHOSPHORUS 4.1 mg/dL (2.5-4.9)
[2025-05-05] MEDS ORDERED: LIDOCAINE/PF 1% 30 ML VIAL ONE (09:43)
[2025-05-05] MEDS: LIDOCAINE 1% 30 ML/SOD BICARB 8.4% 4 ML SQ ONE (10:04)
[2025-05-05 13:16] LABS: GLUCOMETER DEV NAME(LOC) ICUN.6; GLUCOSE,POINT OF CARE 176 MG/DL (70-110)
[2025-05-05 15:45] LABS: SPECIMENTYPE,BODY FLUID PLV
[2025-05-05 17:00] LABS: GLUCOMETER DEV NAME(LOC) ICUN.6; GLUCOSE,POINT OF CARE 153 MG/DL (70-110)
[2025-05-05 17:00] LABS: APPEARANCE,SPUN,BODY FLUID HAZY (CLEAR); APPEARANCE,UNSPUN,BODY FLUID CLEAR (CLEAR); BODY FLUID RBC 2148.0 /cu. mm.; COLOR,BODY FLUID YELLOW (LT YELLOW); TOTAL VOLUME,BODY FLUID 20 mL; WBC, BODY FLUID 1108 /cu. mm.
[2025-05-05 17:01] LABS: PH, BODY FLUID 8
[2025-05-05 17:08] LABS: BASOPHILS,BODY FLUID 0 %; EOSINOPHILS,BF (ANAL) 0 %; LYMPHOCYTES,BODY FLUID 5 %; MONOCYTES,BODY FLUID 4 %; NEUTROPHILS,BODY FLUID 91 %
[2025-05-05 20:45] LABS: GLUCOMETER DEV NAME(LOC) ICUN.6; GLUCOSE,POINT OF CARE 167 MG/DL (70-110)
[2025-05-06] VITALS (13 sets, daily range): BP systolic 127–154; BP diastolic 71–92; PULSE 62–105; RESP 18–27; TEMP 97.6–98.5; O2SAT 91–99
[2025-05-06 05:32] LABS: PLATELET COUNT (AUTO) 390 K/uL (150-450); RED BLOOD CELL COUNT(AUTO) 5.06 MIL/uL (4.50-5.90); RED CELL DISTRIBUTION WIDTH 17.4 % (11.5-14.5); WHITE BLOOD COUNT (AUTO) 19.2 K/uL (4.5-11.0)
[2025-05-06 05:38] LABS: ASPARTATE AMINOTRANSFERASE 41 U/L (15-37); CALCIUM, TOTAL 9.0 mg/dL (8.8-10.5); CREATININE 1.04 mg/dL (0.60-1.30); GLOMERULAR FILTR. RATE CALC > 60 mL/min (>60); GLUCOSE,RANDOM 167 mg/dL (70-110); PHOSPHORUS 4.4 mg/dL (2.5-4.9); SODIUM SERUM 137 mmol/L (136-145); TOTAL PROTEIN, SERUM 6.8 g/dL (6.4-8.2); UREA NITROGEN, BLOOD 32 mg/dL (7-18)
[2025-05-06 06:21] LABS: RBC MORPHOLOGY COMMENT ABNORMAL RBC MORPH
[2025-05-06 06:30] LABS: GLUCOMETER DEV NAME(LOC) ICUN.6; GLUCOSE,POINT OF CARE 153 MG/DL (70-110)
[2025-05-06 12:07] LABS: GLUCOSE, BODY FLUID,REF <2 mg/dL; TOTAL PROTEIN,BODY FLUID,REF 4.9 g/dL
[2025-05-06 20:20] LABS: GLUCOMETER DEV NAME(LOC) ICUN.6; GLUCOSE,POINT OF CARE 152 MG/DL (70-110)
[2025-05-06] MEDS ORDERED: METOCLOPRAMIDE HCL 5 MG/ML 2 ML VIAL IVP PRN (20:30)
[2025-05-06] MEDS: ZOLPIDEM TARTRATE 5 MG TABLET PO PRN (23:14)
[2025-05-07] VITALS (14 sets, daily range): BP systolic 136–154; BP diastolic 73–97; PULSE 81–125; RESP 10–25; TEMP 97.9–98.9; O2SAT 90–98
[2025-05-07 05:41] LABS: GLUCOMETER DEV NAME(LOC) ICUN.6; GLUCOSE,POINT OF CARE 151 MG/DL (70-110)
[2025-05-07 06:08] LABS: ASPARTATE AMINOTRANSFERASE 35 U/L (15-37); CALCIUM, TOTAL 9.1 mg/dL (8.8-10.5); CREATININE 1.13 mg/dL (0.60-1.30); GLOMERULAR FILTR. RATE CALC > 60 mL/min (>60); GLUCOSE,RANDOM 139 mg/dL (70-110); SODIUM SERUM 138 mmol/L (136-145); TOTAL PROTEIN, SERUM 6.5 g/dL (6.4-8.2); UREA NITROGEN, BLOOD 30 mg/dL (7-18)
[2025-05-07] MEDS: BUMETANIDE 1 MG TABLET PO SCH (07:54)
[2025-05-07 08:34] LABS: PLATELET COUNT (AUTO) 443 K/uL (150-450); RED BLOOD CELL COUNT(AUTO) 5.44 MIL/uL (4.50-5.90); RED CELL DISTRIBUTION WIDTH 16.8 % (11.5-14.5); WHITE BLOOD COUNT (AUTO) 19.0 K/uL (4.5-11.0)
[2025-05-07 09:01] LABS: RBC MORPHOLOGY COMMENT ABNORMAL RBC MORPH
[2025-05-07 13:16] LABS: GLUCOMETER DEV NAME(LOC) ICU.S7; GLUCOSE,POINT OF CARE 150 MG/DL (70-110)
[2025-05-07 13:16] LABS: GLUCOMETER DEV NAME(LOC) ICU.S7; GLUCOSE,POINT OF CARE 121 MG/DL (70-110)
[2025-05-07 17:26] LABS: GLUCOMETER DEV NAME(LOC) ICUN.6; GLUCOSE,POINT OF CARE 171 MG/DL (70-110)
[2025-05-07 19:41] LABS: GLUCOMETER DEV NAME(LOC) ICU.S7; GLUCOSE,POINT OF CARE 162 MG/DL (70-110)
[2025-05-07] MEDS: CefTRIAXone SODIUM 2 GM in DEXTROSE 5%-WATER 50 ML IV SCH (20:16)
[2025-05-07] MEDS: DOXYCYCLINE HYCLATE 100 MG TABLET PO SCH (20:17)
[2025-05-08] VITALS (13 sets, daily range): BP systolic 123–162; BP diastolic 71–100; PULSE 80–105; RESP 14–26; TEMP 97.8–99; O2SAT 93–98
[2025-05-08] MEDS ORDERED: SODIUM CHLORIDE 0.9% 250 ML IV ONE (00:33)
[2025-05-08 05:39] LABS: PLATELET COUNT (AUTO) 388 K/uL (150-450); RED BLOOD CELL COUNT(AUTO) 5.12 MIL/uL (4.50-5.90); RED CELL DISTRIBUTION WIDTH 17.4 % (11.5-14.5); WHITE BLOOD COUNT (AUTO) 17.2 K/uL (4.5-11.0)
[2025-05-08 06:01] LABS: RBC MORPHOLOGY COMMENT ABNORMAL RBC MORPH
[2025-05-08 06:20] LABS: SODIUM SERUM 138 mmol/L (136-145)
[2025-05-08 06:21] LABS: ASPARTATE AMINOTRANSFERASE 16 U/L (15-37); CALCIUM, TOTAL 8.8 mg/dL (8.8-10.5); CREATININE 0.89 mg/dL (0.60-1.30); GLOMERULAR FILTR. RATE CALC > 60 mL/min (>60); GLUCOSE,RANDOM 140 mg/dL (70-110); TOTAL PROTEIN, SERUM 6.3 g/dL (6.4-8.2); UREA NITROGEN, BLOOD 28 mg/dL (7-18)
[2025-05-08 06:26] LABS: GLUCOMETER DEV NAME(LOC) ICU.S7; GLUCOSE,POINT OF CARE 152 MG/DL (70-110)
[2025-05-08 07:35] LABS: GLUCOMETER DEV NAME(LOC) ICUN.6; GLUCOSE,POINT OF CARE 146 MG/DL (70-110)
[2025-05-08 12:56] LABS: GLUCOMETER DEV NAME(LOC) ICUN.6; GLUCOSE,POINT OF CARE 153 MG/DL (70-110)
[2025-05-08 18:01] LABS: GLUCOMETER DEV NAME(LOC) ICU.S7; GLUCOSE,POINT OF CARE 146 MG/DL (70-110)
[2025-05-08] MEDS: ALBUTEROL SULFATE 2.5 MG/0.5 ML NEB SOLUTION NEB PRN (20:22)
[2025-05-09] VITALS (7 sets, daily range): BP systolic 128–167; BP diastolic 64–95; PULSE 76–107; RESP 18–28; TEMP 98–98.5; O2SAT 92–97
[2025-05-09 05:32] LABS: PLATELET COUNT (AUTO) 368 K/uL (150-450); RED BLOOD CELL COUNT(AUTO) 5.51 MIL/uL (4.50-5.90); RED CELL DISTRIBUTION WIDTH 17.4 % (11.5-14.5); WHITE BLOOD COUNT (AUTO) 20.7 K/uL (4.5-11.0)
[2025-05-09 05:33] LABS: CALCIUM, TOTAL 9.1 mg/dL (8.8-10.5); CREATININE 0.89 mg/dL (0.60-1.30); GLOMERULAR FILTR. RATE CALC > 60 mL/min (>60); GLUCOSE,RANDOM 137 mg/dL (70-110); SODIUM SERUM 136 mmol/L (136-145); UREA NITROGEN, BLOOD 26 mg/dL (7-18)
[2025-05-09 06:35] LABS: GLUCOMETER DEV NAME(LOC) ICUN.6; GLUCOSE,POINT OF CARE 131 MG/DL (70-110)
[2025-05-09 06:35] LABS: GLUCOMETER DEV NAME(LOC) ICU.S7; GLUCOSE,POINT OF CARE 173 MG/DL (70-110)
[2025-05-09 17:26] LABS: GLUCOMETER DEV NAME(LOC) ICU.S7; GLUCOSE,POINT OF CARE 163 MG/DL (70-110)
[2025-05-09] MEDS ORDERED: BUDESONIDE 0.5 MG/2 ML NEB SOLUTION NEB SCH (21:00)
== END 2025-05-09 17:15 | DRG 720 ==
LOC: EMS 16:16 → EDH 18:14 → CANBEDREQ 18:46 → 5S 20:28 → ICU 05-01 11:25
PROVIDERS: ADMIT Hospitalist; ATTEND Hospitalist
PROC: 05HB33Z Insertion of Infusion Device into Right Basilic Vein, Percutaneous Approach (ICD-10-PCS; 2025-04-30)
PROC: 5A09357 Assistance with Respiratory Ventilation, Less than 24 Consecutive Hours, Continuous Positive Airway Pressure (ICD-10-PCS; 2025-04-30)
PROC: B54MZZA Ultrasonography of Right Upper Extremity Veins, Guidance (ICD-10-PCS; 2025-04-30)
PROC: 5A09357 Assistance with Respiratory Ventilation, Less than 24 Consecutive Hours, Continuous Positive Airway Pressure (ICD-10-PCS; 2025-05-01)
PROC: 5A0935A Assistance with Respiratory Ventilation, Less than 24 Consecutive Hours, High Flow/Velocity Cannula (ICD-10-PCS; 2025-05-01)
PROC: 5A09357 Assistance with Respiratory Ventilation, Less than 24 Consecutive Hours, Continuous Positive Airway Pressure (ICD-10-PCS; 2025-05-02)
PROC: 5A0935A Assistance with Respiratory Ventilation, Less than 24 Consecutive Hours, High Flow/Velocity Cannula (ICD-10-PCS; 2025-05-02)
PROC: 5A09357 Assistance with Respiratory Ventilation, Less than 24 Consecutive Hours, Continuous Positive Airway Pressure (ICD-10-PCS; 2025-05-03)
PROC: 5A09357 Assistance with Respiratory Ventilation, Less than 24 Consecutive Hours, Continuous Positive Airway Pressure (ICD-10-PCS; 2025-05-04)
PROC: 5A0935A Assistance with Respiratory Ventilation, Less than 24 Consecutive Hours, High Flow/Velocity Cannula (ICD-10-PCS; 2025-05-04)
PROC: 0W9B30Z Drainage of Left Pleural Cavity with Drainage Device, Percutaneous Approach (ICD-10-PCS; principal; 2025-05-05)
PROC: 5A09357 Assistance with Respiratory Ventilation, Less than 24 Consecutive Hours, Continuous Positive Airway Pressure (ICD-10-PCS; 2025-05-05)
PROC: 5A09357 Assistance with Respiratory Ventilation, Less than 24 Consecutive Hours, Continuous Positive Airway Pressure (ICD-10-PCS; 2025-05-06)
DX: A41.9 Sepsis, unspecified organism (principal); J96.01 Acute respiratory failure with hypoxia; J86.9 Pyothorax without fistula; I13.0 Hypertensive heart and chronic kidney disease with heart failure and stage 1 through stage 4 chronic kidney disease, or unspecified chronic kidney disease; N17.9 Acute kidney failure, unspecified; J15.69 Pneumonia due to other Gram-negative bacteria; I50.9 Heart failure, unspecified; E87.1 Hypo-osmolality and hyponatremia; Z20.822 Contact with and (suspected) exposure to COVID-19; D64.9 Anemia, unspecified; E66.01 Morbid (severe) obesity due to excess calories; E78.5 Hyperlipidemia, unspecified; N18.9 Chronic kidney disease, unspecified; G47.33 Obstructive sleep apnea (adult) (pediatric); F20.9 Schizophrenia, unspecified; F32.A Depression, unspecified; K21.9 Gastro-esophageal reflux disease without esophagitis; M25.512 Pain in left shoulder; J44.0 Chronic obstructive pulmonary disease with (acute) lower respiratory infection; R74.01 Elevation of levels of liver transaminase levels; J96.02 Acute respiratory failure with hypercapnia; K59.00 Constipation, unspecified; I77.810 Thoracic aortic ectasia; W19.XXXA Unspecified fall, initial encounter; Z68.42 Body mass index [BMI] 45.0-49.9, adult; Z79.899 Other long term (current) drug therapy; Z82.49 Family history of ischemic heart disease and other diseases of the circulatory system; Z87.01 Personal history of pneumonia (recurrent)
CPT/HCPCS: 36245; 36569; 36600; 71045; 71250; 71275; 74177; 75989; 76937; 80048; 80053; 81003; 82805; 82945; 82962; 83605; 83615; 83735; 83880; 83986; 84100; 84145; 84157; 84484; 85025; 85610; 87040; 87075; 87081; 87205; 87449; 87637; 87804; 87899; 89051; 93005; 93306; 94640; 94644; 94660; 94760; 96365; 96368; 96372; 96375; 97162; 97530; 99285; G0378; J0169; J0360; J0456; J0696; J1644; J1938; J1956; J2060; J2405; J2470; J2919; J3490; J7030; J7050; J7060; 36415-L1; 36415-TC; 87070; J7613